=== PATIENT | male | born 1970 | race Caucasian/White ===

== ENCOUNTER 2017-12-16 15:00 | Inpatient (IN) | payer OTHER ==
[~2017-12-16] VITALS: Ht 182.9 cm; Wt 85.7 kg
[2017-12-16 15:04] VITALS: BP 138/104
[2017-12-16] MEDS ORDERED: WARF3TAB PO (15:12)
[2017-12-16] MEDS ORDERED: SPIR50TA PO (15:12)
[2017-12-16] MEDS ORDERED: METO25TA PO (15:12)
[2017-12-16] MEDS ORDERED: DIGO0.121 PO (15:12)
[2017-12-16 15:36] LABS: BASOPHILS # (AUTO) 0.3 K/uL (0.00-0.22); EOSINOPHILS # (AUTO) 0.1 K/uL (0-0.4); HEMATOCRIT 44.8 % (36-52); HEMOGLOBIN 14.3 g/dL (12.0-18.0); LYMPHOCYTES # (AUTO) 1.3 K/uL (2.0-11.5); MEAN CORPUSCULAR HEMOGLOBIN 30 pg (27-31); MEAN CORPUSCULAR HGB CONC 32 g/dL (33-37); MEAN CORPUSCULAR VOLUME 93 fL (80-94); MONOCYTES # (AUTO) 1.3 K/uL (0.8-1.0); PLATELET COUNT (AUTO) 241 K/uL (140-450); RED CELL DISTRIBUTION WIDTH 15.9 % (11.6-13.7)
--- NOTE | 2017-12-16 15:38 | NUR ---
ASSUMED PATIENT CARE, CONCUR WITH TRIAGE. NURSING ASSESSMENT COMPLETED. SEEN AND EVALUATED BY PAULINA HARRISON COMPLETED. STARTED ON CARDIAC MONITORING. SAFETY PRECAUTIONS ENFORCED.
[2017-12-16 15:46] LABS: ANION GAP 17.5 (8-16); CARBON DIOXIDE 22.9 mmol/L (21-32); POTASSIUM 4.4 mmol/L (3.5-5.1)
[2017-12-16 15:52] LABS: ALBUMIN 3.4 g/dL (3.4-5.0); TOTAL BILIRUBIN 1.6 mg/dL (0.0-1.0)
[2017-12-16 16:01] LABS: PROTHROMBIN TIME 49.2 secs (10.8-13.4)
--- NOTE | 2017-12-16 16:08 | NUR ---
DIAGNOSTIC TESTING INITIATED, AWAIT RESULTS AND DISPO. PATIENT UPDATED OF PLAN OF CARE.
[2017-12-16] MEDS ORDERED: FUROSEMIDE 40 MG/4 ML VIAL IVP ONE (16:10)
[2017-12-16] MEDS ORDERED: NITROGLYCERIN 2% 1 GM PKT TP ONE (16:10)
[2017-12-16] MEDS ORDERED: SODIUM CHLORIDE FLUSH 10 ML SYR IVF ONE (16:10)
[2017-12-16] MEDS ORDERED: DILTIAZEM 25 MG/5 ML VIAL IVP ONE (16:10)
--- NOTE | 2017-12-16 17:11 | NUR ---
DISPO AND MEDICAL DECISION MAKING, INPATIENT ADMISSION FOR FURTHER MANAGEMENT AND CARE. PATIENT UPDATED ACCORDINGLY.
[2017-12-16] MEDS ORDERED: ALBUTEROL 0.083% 2.5 MG/3 ML NEBU IH PRN (17:15)
[2017-12-16] MEDS ORDERED: ONDANSETRON 4 MG/2 ML VIAL IVP PRN (17:15)
[2017-12-16] MEDS ORDERED: MORPHINE SULFATE 4 MG/ML SYR IVP PRN (17:15)
[2017-12-16] MEDS ORDERED: ACETAMINOPHEN 325 MG TAB PO PRN (17:15)
[2017-12-16] MEDS ORDERED: DILTIAZEM 25 MG/5 ML VIAL IVP PRN (17:20)
[2017-12-16 17:50] VITALS: BP 117/74
--- NOTE | 2017-12-16 17:50 | NUR ---
PATIENT ADMITTED TO THE UNIT FROM ER. PATIENT AWAKE, ALERT AND ORIENTED. PATIENT ON 2L O2. SOB NOTED UPON EXERTION. O2 SAT 94% AT THE MOMENT. DENIES PAIN. SKIN IS INTACT. IV LINE NOTED TO THE RIGHT UPPER ARM SL. PATIENT HAS LEFT SIDED WEAKNESS. BLE NON PITTING EDEMA NOTED. PATIENT PLACED ON TELE MONITORING. BED LOWERED WITH CALL LIGHT WITHIN REACH. WILL CONTINUE TO MONITOR.
--- NOTE | 2017-12-16 18:00 | NUR ---
SPOKE WITH DR Marietta LOPEZ AND INFORMED HIM ABOUT PT'S BNP AND TROPONIN LEVEL. ORDERS ANOTHER TROPONIN DRAW FOR TOMORROW MORNING
--- NOTE | 2017-12-16 18:04 | NUR ---
TRANSFERRED TO TELE FLOOR VIA ANNA HOOKS PROTOCOL. PATIENT CARE REPORT GIVEN TO AIMEE MCCARTY. CONTINUITY OF CARE ENDORSED. PATIENT STABLE, NO DISTRESS.
--- NOTE | 2017-12-16 18:30 | NUR ---
Social Service Note: I was informed by patient's nurse Boni patient would like information about Advance Directives. I met with patient at bedside. I provided patient with education on Advance Directives. He stated he had a stroke before and would like his family to know his medical wishes. He reported he was at [facility] previously and now is living at home.
--- NOTE | 2017-12-16 19:30 | NUR ---
PATIENT REPORT GIVEN AT BEDSIDE. PATIENT ENDORSED IN STABLE CONDITION.
--- NOTE | 2017-12-16 19:35 | NUR ---
RECEIVED PT FROM DAY SHIFT NURSE. PT STABLE AT THIS TIME. VISITOR AT PT BED SIDE. PT EATING. NO S/S OF RESPIRATORY DISTRESS OR DISCOMFORT NOTED. 97% O2SAT ON ROOM AIR. RIGHT UA #18G, HEPLOCK. BED IN LOWEST POSITION. CALL LIGHT AND URINAL WITHIN EASY REACH. PLAN OF CARE WAS DISCUSSED WITH PT AND VERBALIZED UNDERSTANDING. WILL CONTINUE TO MONITOR.
[2017-12-16 19:45] VITALS: BP 127/82
--- NOTE | 2017-12-16 20:30 | NUR ---
URINE SPECIMEN COLLECTED FOR URINE DRUG SCREEN. SENT TO [facility]. WILL FOLLOW UP RESULT.
[2017-12-16] MEDS: IPRATROPIUM 0.02% 0.5 MG/2.5 ML NEBU INH SCH (20:54)
[2017-12-16] MEDS: ALBUTEROL 0.083% 2.5 MG/3 ML NEBU INH SCH (20:54)
[2017-12-16] MEDS: FUROSEMIDE 40 MG/4 ML VIAL IVP SCH (21:00)
[2017-12-16] MEDS: METOPROLOL 50 MG TAB PO SCH (21:00)
[2017-12-16 21:14] VITALS: BP 95/45
--- NOTE | 2017-12-16 21:15 | NUR ---
LASIX AND LOPRESSOR NOT GIVEN, BP LOW 94/45. WILL CONTINUE TO MONITOR.
[2017-12-16 23:21] LABS: BARBITURATE, URINE NEG. ng/ml (NEG <=200); BENZODIAZEPINE, URINE NEG. ng/mL (NEG <=200); CANNABINOID, URINE NEG. ng/mL (NEG <=50); COCAINE, URINE NEG. ng/mL (NEG <=300); OPIATE, URINE NEG. ng/mL (NEG <=2000); PHENCYCLIDINE SCREEN,URINE NEG. ng/mL (NEG <=25)
[2017-12-17] VITALS: BP 106/86
[2017-12-17 01:06] LABS: CREATINE KINASE MB 1.9 ng/mL (0-3.6)
[2017-12-17] MEDS: IPRATROPIUM 0.02% 0.5 MG/2.5 ML NEBU INH SCH ×4 (01:21→19:00)
--- NOTE | 2017-12-17 01:21 | NUR ---
ASLEEP PATIENT NOTED WITH PERIODS OF SLEEP APNEA SATURATION 86% ROOM AIR POST HHN THERAPY PLACED PATIENT ON SUPPLEMENTAL OXYGEN AT 2 LPM VIA TN SOLE MOLDER TO NOTIFY KAROL RN'S
[2017-12-17] MEDS: ALBUTEROL 0.083% 2.5 MG/3 ML NEBU INH SCH ×4 (01:22→19:00)
--- NOTE | 2017-12-17 02:06 | NUR ---
PT HAD EPISODE OF V TACH THAT RUNS 210SEC. WENT IN AND CHECKED PT . RT IN ROOM . JUST HAD BREATHING TREATMENT, AND O2 2L/WAS STARTED ON HIM. VITAL SIGNS WAS CHECKED. BP STILL ON LOW SIDE 96/73, HR-61, O2 SAT 98%. NO CHEST PAIN NOR DISCOMFORT NOTED. PAGED DR. LOPEZ AND MADE HIM AWARE OF THIS EPISODE. ALSO MADE AWARE OF THE SECOND TROPONIN 0.211 NO NEW ORDER MADE. WILL SEE PT TODAY. WILL CONTINUE TO MONITOR.
[2017-12-17 04:00] VITALS: BP 97/53
--- NOTE | 2017-12-17 04:00 | NUR ---
VITAL SIGNS TAKEN. STABLE. NO DISTRESS NOTED. O2 SAT ON ROOM AIR 98%.
--- NOTE | 2017-12-17 06:00 | NUR ---
PT IS ASLEEP. NO S/S OF ANY DISTRESS NOTED. ON O22L/NC.
[2017-12-17 07:11] LABS: BASOPHILS # (AUTO) 0.4 K/uL (0.00-0.22); BASOPHILS % (AUTO) 4.7 % (0.0-2.0); EOSINOPHILS # (AUTO) 0.2 K/uL (0-0.4); EOSINOPHILS % (AUTO) 2.2 % (0.0-4.0); HEMATOCRIT 37.8 % (36-52); HEMOGLOBIN 12.3 g/dL (12.0-18.0); LYMPHOCYTES # (AUTO) 1.3 K/uL (2.0-11.5); LYMPHOCYTES % (AUTO) 15.1 % (20.5-51.1); MEAN CORPUSCULAR HEMOGLOBIN 30 pg (27-31); MEAN CORPUSCULAR HGB CONC 33 g/dL (33-37); MEAN CORPUSCULAR VOLUME 93 fL (80-94); MONOCYTES # (AUTO) 0.9 K/uL (0.8-1.0); MONOCYTES % (AUTO) 10.9 % (1.7-9.3); NEUTROPHILS # (AUTO) 5.6 K/uL (1.8-7.7); NEUTROPHILS % (AUTO) 67.1 % (42.2-75.2); PLATELET COUNT (AUTO) 171 K/uL (140-450); RED BLOOD CELL COUNT(AUTO) 4.05 MIL/uL (4.20-6.10); RED CELL DISTRIBUTION WIDTH 16.2 % (11.6-13.7); WHITE BLOOD COUNT (AUTO) 8.4 K/uL (4.8-10.8)
--- NOTE | 2017-12-17 07:25 | NUR ---
ENDORSED PT IN STABLE CONDITION TO AM NURSE.
--- NOTE | 2017-12-17 07:26 | NUR ---
RECEIVED REPORT FROM ANGLEDOZER OPERATOR NURSE FOR CONTINUITY OF CARE AT BEDSIDE. PATIENT RESTING IN BED WITH EYES CLOSED EASILY WOKEN. NO ACUTE DISTRESS NOTED. PT WITH 22G IN LAC. SALINE LOCK. CALL LIGHT WITHIN REACH. WILL CONT TO MONITOR PT.
[2017-12-17 07:31] LABS: ALBUMIN 2.9 g/dL (3.4-5.0); ANION GAP 15.6 (8-16); CREATININE 1.9 mg/dL (0.7-1.3); PHOSPHORUS 3.2 mg/dL (2.5-4.9); POTASSIUM 3.6 mmol/L (3.5-5.1); TOTAL BILIRUBIN 1.3 mg/dL (0.0-1.0)
[2017-12-17 08:00] VITALS: BP 119/72
--- NOTE | 2017-12-17 08:00 | NUR ---
PATIENT ALERT AND ABLE TO MAKE NEEDS KNOWN. NO ACUTE DISTRESS NOTED. RESP EVEN AND UNLABORED. PT WITH RUE 22G SALINE LOCK. PATENT AND INTACT. PATIENT WITH LEFT SIDED WEAKNESS. AEROSOL SUPERVISOR IN PLACE AND FUNCTIONAL. CALL LIGHT WITHIN REACH. WILL CONT TO MONITOR PT.
[2017-12-17] MEDS: SPIRONOLACTONE 25 MG TAB PO SCH (08:58)
[2017-12-17] MEDS: FUROSEMIDE 40 MG/4 ML VIAL IVP SCH ×2 (08:58→21:00)
[2017-12-17] MEDS: DIGOXIN 0.125 MG TAB PO SCH (08:59)
[2017-12-17] MEDS: METOPROLOL 50 MG TAB PO SCH ×2 (08:59→21:21)
--- NOTE | 2017-12-17 09:00 | NUR ---
PATIENT ALERT AND ABLE TO VERBALIZE NEEDS. NO ACUTE DISTRESS NOTED. RESP EVEN AND UNLABORED. MORNING MEDICATION ADMINISTERED SCHEDULED PER MD ORDER. TOLERATED WELL. PT WITH RUE 22G SALINE LOCK. PATENT AND INTACT.URINAL AT BEDSIDE. CALL LIGHT WITHIN REACH. WILL CONT TO MONITOR.
--- NOTE | 2017-12-17 11:07 | NUR ---
LAB REPORTED INR OF 3.7. INR TRENDING DOWN. NO ACUTE DISTRESS NOTED. PATIENT WITHOUT BLEEDING OR BRUISING CALL LIGHT WITHIN REACH. WILL CONT TO MONITOR..
[2017-12-17 12:00] VITALS: BP 102/71
--- NOTE | 2017-12-17 13:30 | NUR ---
PATIENT WITH APPROX 2 SECONDS OF V TACH. CHECKED ON PATIENT . PATIENT ALERT AND ABLE TO MAKE NEEDS KNOWN. NO C/O PAIN OR DISCOMFORT. ASYMPTOMATIC. CALL LIGHT WITHIN REACH. WILL CONT TO MONITOR PT. INFORMED DR LOPEZ WITH NO NEW ORDERS.
--- NOTE | 2017-12-17 15:00 | NUR ---
DR CRUZ IN TO SEE PATIENT WITH NEW ORDERS. PATIENT ALERT AND ABLE TO VERBALIZE NEEDS. NO ACUTE DISTRESS NOTED. WILL CONT TO MONITOR.
--- NOTE | 2017-12-17 15:30 | NUR ---
PT ALERT AND ABLE TO VERBALIZE NEEDS. NO ACUTE DISTRESS. NO SOB. RESP EVEN AND UNLABORED. CALL LIGHT WITHIN EACH. WILL CONT TO MONITOR PT.
[2017-12-17 16:00] VITALS: BP 113/82
[2017-12-17 17:58] LABS: CREATINE KINASE MB 2.4 ng/mL (0-3.6)
--- NOTE | 2017-12-17 18:35 | NUR ---
CALLED DR LOPEZ REGARDING CRITICAL LAB REPORT OF TROP 0.233. DR LOPEZ VERBALIZED NO NEW ORDERS. PATIENT ASYMPTOMATIC. RESTING IN BED. NO C/O PAIN OR DISCOMFORT. NO C/O SOB. PT ON RA . O2 SAT 93%. CALL LIGHT WITHIN REACH. WILL CONT TO MONITOR.
--- NOTE | 2017-12-17 19:24 | NUR ---
ENDORSED REPORT TO COUTIERIER NURSE AT BEDSIDE FOR CONTINUITY OF CARE.
--- NOTE | 2017-12-17 19:25 | NUR ---
RECEIVED PT FROM ELIA RN PT IS AAOX4 ON LABORES BREATHING AND SINUS TACHY 106 HL ON RT UP AND PT HAS A LEFT SIDE WEAKNESS RELATIVES AT BED SIDE IN;ITIAL ASSESSMENT DONE
--- NOTE | 2017-12-17 19:45 | NUR ---
PT REFUSED TX AT THIS TIME, CURRENTLY HAD GUESTS AND WANTED TO SPEND TIME, NO RESP DISTRESS OR SOB NOTED AT THIS TIME, O2 SAT 96% ON RA, WILL CHECK BACK AT A LATER TIME AND CONTINUE WITH NEXT SCHEDULED TX
[2017-12-17 20:00] VITALS: BP 106/83
--- NOTE | 2017-12-17 21:00 | NUR ---
PT REFUSED LASIX HE COMPLAINT TO UNABLE TO SLEEP BECAUSE LASIX DIURETIC.
--- NOTE | 2017-12-17 22:00 | NUR ---
PT IS ASSISTED TO THE RESTROOM NOT DISTRES NOTED ON TELEMETRY AFIB
[2017-12-18] VITALS: BP 109/82
[2017-12-18] MEDS: IPRATROPIUM 0.02% 0.5 MG/2.5 ML NEBU INH SCH ×3 (00:07→12:55)
[2017-12-18] MEDS: ALBUTEROL 0.083% 2.5 MG/3 ML NEBU INH SCH ×3 (00:07→12:55)
--- NOTE | 2017-12-18 01:50 | NUR ---
PT SLEEPING HR HAS BEEN TACHY AFIB AND LABORED BREATHING BU 02 SAT 98
--- NOTE | 2017-12-18 03:00 | NUR ---
PT SLEEPING NOT DISTRESS NOTED AT THIS TIME AFIB 125
--- NOTE | 2017-12-18 04:35 | NUR ---
PATIENT RECEIVED FROM LUL LUGO PATIENT IS CURRENTLY RESTING IN BED WITH LT SIDED WEAKNESS HAS OXYGEN AT 2L VIA NASAL CANNULA. I CHECKED HIS VITAL SIGNS. NO SOB NOTED NO COMPLAINS OF PAIN OR CHEST PAIN NOTED. PATIENT IS ABLE TO USE THE URINAL. CALL LIGHT WITHIN REACH WILL CONTINUE TO MONITOR.
[2017-12-18 04:40] VITALS: BP 104/68
--- NOTE | 2017-12-18 04:41 | NUR ---
Alexandru AMAYA HAS ALREADY BEEN INFORMED THAT PATIENT HAS BEEN HAVING EPISODES OF VTACH.PATIENT HAS BEEN SEEN ALREADY BY Alexandru AMAYA REGULATOR TESTER.
--- NOTE | 2017-12-18 04:41 | NUR ---
PATIENT HAD A SHORT PERIOD OF VTACH PATIENT VITALS HAVE BEEN CHECKED AND THEY ARE CURRENTLY WNL AT THIS TIME PATIENT DENIES ANY CHEST PAIN PATIENT REMAINS ASYMPTOMATIC AT THIS TIME AND CONTINUES TO BE MONITORED.
[2017-12-18 06:41] LABS: BASOPHILS # (AUTO) 0.2 K/uL (0.00-0.22); BASOPHILS % (AUTO) 1.9 % (0.0-2.0); EOSINOPHILS # (AUTO) 0.1 K/uL (0-0.4); EOSINOPHILS % (AUTO) 1.1 % (0.0-4.0); HEMATOCRIT 38.6 % (36-52); HEMOGLOBIN 12.6 g/dL (12.0-18.0); LYMPHOCYTES # (AUTO) 0.8 K/uL (2.0-11.5); LYMPHOCYTES % (AUTO) 7.9 % (20.5-51.1); MEAN CORPUSCULAR HEMOGLOBIN 30 pg (27-31); MEAN CORPUSCULAR HGB CONC 33 g/dL (33-37); MEAN CORPUSCULAR VOLUME 92 fL (80-94); MONOCYTES # (AUTO) 0.8 K/uL (0.8-1.0); MONOCYTES % (AUTO) 8.2 % (1.7-9.3); NEUTROPHILS # (AUTO) 7.6 K/uL (1.8-7.7); NEUTROPHILS % (AUTO) 80.9 % (42.2-75.2); PLATELET COUNT (AUTO) 179 K/uL (140-450); RED CELL DISTRIBUTION WIDTH 16.1 % (11.6-13.7)
--- NOTE | 2017-12-18 06:55 | NUR ---
PATIENT IS CURRENTLY AWAKE SITTING AT THE EDGE OF THE BED. PATIENT DENIES PAIN AND DISCOMFORT.
--- NOTE | 2017-12-18 07:10 | NUR ---
RECEIVED REPORT FROM JAVI MCGILL. PT IS AAOX4, AMBULATORY, IV IS ON THE RIGHT AC, PATENT, INTACT, FLUSHING WELL, NO S/S OF RESPIRATORY DISTRESS OR DISCOMFORT NOTED, DISCUSSED PLAN OF CARE WITH PT, PT VERBALIZED UNDERSTANDING, SAFETY/FALL PRECAUTIONS ARE IN PLACE, CALL LIGHT IS WITHIN REACH, WILL CONTINUE TO MONITOR.
[2017-12-18 07:18] LABS: ALBUMIN 2.9 g/dL (3.4-5.0); ANION GAP 14.7 (8-16); CREATININE 1.8 mg/dL (0.7-1.3); POTASSIUM 3.7 mmol/L (3.5-5.1); TOTAL BILIRUBIN 1.9 mg/dL (0.0-1.0)
[2017-12-18 07:56] LABS: WHITE BLOOD COUNT (AUTO) 9.5 K/uL (4.8-10.8)
[2017-12-18 08:00] VITALS: BP 107/88
[2017-12-18] MEDS: SPIRONOLACTONE 25 MG TAB PO SCH (08:08)
[2017-12-18] MEDS: FUROSEMIDE 40 MG/4 ML VIAL IVP SCH (08:08)
[2017-12-18] MEDS: METOPROLOL 50 MG TAB PO SCH (08:09)
[2017-12-18] MEDS: DIGOXIN 0.125 MG TAB PO SCH (08:24)
--- NOTE | 2017-12-18 08:24 | NUR ---
DUE MEDICATION GIVEN, PT TOLERATED WELL, NO S/S OF RESPIRATORY DISTRESS OR DISCOMFORT NOTED. CALL LIGHT WITHIN REACH.
--- NOTE | 2017-12-18 08:32 | NUR ---
PATIENT HAS BEEN SCREENED AND CATEGORIZED MODERATE NUTRITION RISK. PATIENT WILL BE SEEN WITHIN 3-5 DAYS OF ADMISSION. 12/18/17-12/20/[address]
--- NOTE | 2017-12-18 10:30 | NUR ---
PT SLEEPING IN BED AT THIS TIME, CALL LIGHT IS WITHIN REACH.
[2017-12-18 12:00] VITALS: BP 116/86
--- NOTE | 2017-12-18 12:00 | NUR ---
PT RESTING IN BED, WATCHING TV, CALL LIGHT IS WITHIN REACH.
--- NOTE | 2017-12-18 13:45 | NUR ---
CM NOTE INITIAL REVIEW FAXED TO [facility] / FAX# [phone], ATTN: LEIGHA #[phone]
[2017-12-18] MEDS ORDERED: WARF3TAB PO (14:39)
--- NOTE | 2017-12-18 14:40 | NUR ---
DR. CRUZ IN PATIENT'S ROOM, TALKING TO PATIENT AT THIS TIME.
--- NOTE | 2017-12-18 15:49 | NUR ---
DISCHARGE INSTRUCTIONS GIVEN, IV REMOVED, CATHETER TIP INTACT, ID WRIST BAND REMOVED. PT STABLE UPON DISCHARGE, ACCOMPANIED BY FRIEND.
--- NOTE | 2017-12-20 16:14 | NUR ---
DISCHARGE SUMMARY AND DATE OF DISCHARGE WRITTEN ON THE FAX SHEET FAXED TO [facility] [phone]
== END 2017-12-18 15:50 | disposition home or self-care (01) | DRG 190 ==
LOC: MED 15:00 → MTU 17:18
PROVIDERS: ADMIT Hospitalist; ATTEND Hospitalist
DX: I21.4 Non-ST elevation (NSTEMI) myocardial infarction (principal); N17.0 Acute kidney failure with tubular necrosis; I47.2 Ventricular tachycardia; I50.43 Acute on chronic combined systolic (congestive) and diastolic (congestive) heart failure; N18.3 Chronic kidney disease, stage 3 (moderate); I13.0 Hypertensive heart and chronic kidney disease with heart failure and stage 1 through stage 4 chronic kidney disease, or unspecified chronic kidney disease; I42.0 Dilated cardiomyopathy; I25.10 Atherosclerotic heart disease of native coronary artery without angina pectoris; I48.91 Unspecified atrial fibrillation; E78.5 Hyperlipidemia, unspecified; F15.11 Other stimulant abuse, in remission; Z95.810 Presence of automatic (implantable) cardiac defibrillator; I69.954 Hemiplegia and hemiparesis following unspecified cerebrovascular disease affecting left non-dominant side; Z87.891 Personal history of nicotine dependence
CPT/HCPCS: 36415; 71045; 71250; 80053; 80162; 80305; 82550; 82553; 83735; 83880; 84100; 84484; 85025; 85610; 85730; 87081; 87804; 93005; 94640; 96374; 96375; 97110; 97140; 99285; J1940; J3490; J7613; J7644; Q0092

== ENCOUNTER 2017-12-29 21:48 | Inpatient (IN) | payer OTHER ==
[~2017-12-29] VITALS: Ht 175.3 cm; Wt 81.2 kg
[~2017-12-29 21:48] MED LIST: DIGO0.121 PO; METO25TA PO; SPIR50TA PO; WARF3TAB PO
--- NOTE | 2017-12-29 21:51 | NUR ---
PT TAKEN TO BED 10
[2017-12-29 21:52] VITALS: BP 92/70
--- NOTE | 2017-12-29 21:52 | NUR ---
47/M BIB W C/O SOB X 1 MONTH. DIMINISHED LUNG SOUNDS BILATERALLY WITH RHONCHI TO LT MIDLOBE, SATS 85% ON RA, PT PLACED ON 2LPM NC, HOB ELEVATED, INCREASED WOB NOTED, PT WITH ACCESSORY MUSCLE USE AND SPEAKS COHERENTLY WITH FREQUENT PAUSES. STATES " HE HAS BEEN SPITTING UP CLEAR FLUID" PMH: HTN, CHF, STAGE 3 KIDNEY DISEASE , ABLATION 12/28/17, CVA WITH LEFT SIDE DEFICIT 10/2016, VA 10/2016. Addendum: 12/30/17 at 0053 by LILIANE HX: PANCREATITIS
[2017-12-29 22:08] VITALS: BP 92/70
[2017-12-29] MEDS ORDERED: NITR0.4S14 SL (22:08)
[2017-12-29] MEDS ORDERED: ALPR0.5O4 PO (22:08)
[2017-12-29] MEDS ORDERED: ACET-8386 PO (22:08)
--- NOTE | 2017-12-29 22:11 | NUR ---
Roger kunz in [facility] - 12/29/17 at 2218 [address] RYLAND RT AT BEDSIDE
--- NOTE | 2017-12-29 22:12 | NUR ---
PT STATES HE PRODUCES VERY LITTLE URINE, BUT WAS PROVIDED URINAL
--- NOTE | 2017-12-29 22:14 | NUR ---
PROFILE MILL OPERATOR TAPE CONTROL AT BEDSIDE
--- NOTE | 2017-12-29 22:16 | NUR ---
Note ze in EDM - 12/29/17 at 2218 by MEDCRICKET Pt in bed positioned for comfort. DEPARTMENT OF MATHEMATICS CHAIR at bedside. VSS. Pt cooperative and calm at this time. Continue to monitor.
--- NOTE | 2017-12-29 22:16 | NUR ---
RESPIRATORY AT BEDSIDE FOR ABG
[2017-12-29] MEDS ORDERED: NACL 0.9% 500 ML IV ONE (22:30)
[2017-12-29 23:09] LABS: ALBUMIN 3.5 g/dL (3.4-5.0); ANION GAP 27.4 (8-16); CARBON DIOXIDE 14.8 mmol/L (21-32); CREATININE 3.4 mg/dL (0.7-1.3); TOTAL BILIRUBIN 5.1 mg/dL (0.0-1.0)
[2017-12-29 23:17] LABS: POTASSIUM 7.2 mmol/L (3.5-5.1)
[2017-12-29 23:37] LABS: HEMATOCRIT 50.5 % (36-52); HEMOGLOBIN 15.5 g/dL (12.0-18.0); MEAN CORPUSCULAR HEMOGLOBIN 29 pg (27-31); MEAN CORPUSCULAR HGB CONC 31 g/dL (33-37); MEAN CORPUSCULAR VOLUME 94 fL (80-94); PLATELET COUNT (AUTO) 137 K/uL (140-450); WHITE BLOOD COUNT (AUTO) 10.1 K/uL (4.8-10.8)
[2017-12-29 23:39] LABS: LYMPHOCYTES % (MANUAL) 8 % (20-46); MONOCYTES % (MANUAL) 7 % (5-12)
--- NOTE | 2017-12-29 23:43 | NUR ---
RT AT BEDSIDE FOR TREATMENT
[2017-12-30] VITALS (16 sets, daily range): BP systolic 96–130; BP diastolic 62–84
[2017-12-30] MEDS ORDERED: SODIUM POLYSTYRENE 15 GM/60 ML UDBTL PO SCH
[2017-12-30] MEDS ORDERED: ALBUTEROL 0.083% 2.5 MG/3 ML NEBU INH SCH
[2017-12-30] MEDS ORDERED: CALCIUM GLUCONATE 10% 1000 MG/10 ML VIAL IVP SCH
--- NOTE | 2017-12-30 00:10 | NUR ---
CALLED HOUSE SUP FOR FOOD
--- NOTE | 2017-12-30 00:10 | NUR ---
PT UNABLE TO VOID AT THIS TIME, JAILENE HARRISON MADE AWARE
--- NOTE | 2017-12-30 00:20 | NUR ---
PT REFUSING DINNER, ER MADE AWARE
--- NOTE | 2017-12-30 00:20 | NUR ---
HOUSE SUP GAVE PT DINNER.
[2017-12-30] MEDS ORDERED: FUROSEMIDE 20 MG TAB PO SCH (00:40)
[2017-12-30] MEDS ORDERED: LORazepam 2 MG/ML VIAL IVP PRN (00:40)
[2017-12-30] MEDS ORDERED: ONDANSETRON 4 MG/2 ML VIAL IVP PRN (00:40)
[2017-12-30] MEDS ORDERED: MORPHINE SULFATE 4 MG/ML SYR IVP PRN ×2 (00:40)
--- NOTE | 2017-12-30 00:47 | NUR ---
PT REFUSING KAYEXELATE, PT INSTRUCTED REGARDING INDICATION OF MEDICINE. ER MADE AWARE
--- NOTE | 2017-12-30 00:52 | NUR ---
CALLED TELE HOST/HOSTESS RESTAURANT FOR TELE BED. RN WILL CALL BACK WITH TELE ROOM#
--- NOTE | 2017-12-30 01:05 | NUR ---
Patient will be admitted to care of [facility]. Admited to TELE . Will go to room 121B. Belongings list completed. BEDSIDE Report to RICHIE MCCARTY. IV SL AND PATENT
--- NOTE | 2017-12-30 01:10 | NUR ---
RECEIVED PT FROM ER ELODIA RN, NOT IN STABLE CONDITION. PT AAOX4, ON ROOM AIR. NO ACUTE SYMPTOMS OF DISTRESS. SKIN IS COOL AND CYANOTIC. IV TO R WRIST 18G, NOT PATENT. SKIN IS INTACT. REDNESS NOTED TO SACRAL AREA. CRACKLES HEARD IN THE LUNGS BILATERALLY. PTS POTASSIUM 7.2 ELODIA REPORTED PT REFUSED KAYEXALATE IN ER. INITIAL ASSESSMENT COMPLETED, PLAN OF CARE DISCUSSED WITH PT, CALL LIGHT WITHIN REACH, BOARD UPDATED, WILL CONTINUE TO MONITOR.
--- NOTE | 2017-12-30 01:15 | NUR ---
PT CAME FROM ER WITH LASIX 40 MG DUE, NOT GIVEN IN ER, MEDICATION NOT AVAILABLE IN [facility], MADE MACHINE STRAW HAT PRESSER AWARE TOP BRING
--- NOTE | 2017-12-30 01:20 | NUR ---
BLADDER SCAN DONE, SHOWS 17ML OF URINE, GARCIA CATHETER PLACED, PT TOLERATED WELL
[2017-12-30 01:30] LABS: PROTHROMBIN TIME 31.5 secs (10.8-13.4)
[2017-12-30 01:45] LABS: ALBUMIN 2.9 g/dL (3.4-5.0); BILIRUBIN,DIRECT 2.2 mg/dL (0.0-0.3)
--- NOTE | 2017-12-30 01:45 | NUR ---
PAGED DR. DESIR FOR CRITICAL LAB OF LACTIC ACID 12.4, AND TO MAKE AWARE OF ALL OTHER LABS
--- NOTE | 2017-12-30 01:50 | NUR ---
DR. DESIR PAGED BACK, MADE AWARE OF LABS, DR. DESIR STATED, "PT NEEDS TO TAKE KAYEXALATE, HE NEEDS TO BE CONVINCED BECAUSE HE COULD ." DR. DESIR ORDERED BLADDER SCAN, GARCIA CATHETER, AND CONSULT FOR DR. LOPEZ
--- NOTE | 2017-12-30 01:50 | NUR ---
PT STILL REFUSING TO TAKE KAYEXALATE AT THIS TIME.
--- NOTE | 2017-12-30 02:00 | NUR ---
NEPHROLOGY CONSULT DR. CONCHITA REILLY AND STATED THAT HE DOES NOT HAVE ACCESS AT [facility] AND HE THINKS IT IS A MISTAKE HE WAS CONSULTED AND HE WILL HAVE TO DECLINE AND TO MAKE DR. DESIR AWARE
--- NOTE | 2017-12-30 02:05 | NUR ---
DR. DESIR PAGED TO MAKE AWARE OF DR. ARANGO DECLINING CONSULT. HE SAID TO PAGE DR. LANCASTER.
--- NOTE | 2017-12-30 02:10 | NUR ---
DR. LIU BUSINESS SERVICES SALES REPRESENTATIVE FOR DR. LANCASTER, DR. LIU MADE AWARE OF REQUESTING CONSULT. HE STATED HE WILL TAKE PT. DR. LIU STATED, "THIS PT CAME TO THE FLOOR WITH THESE LABS? THIS PT NEEDS TO BE IN ICU NOW." DR. LIU ORDERED FOR PT TO BE IN ICU AND STARTED ON D5 WITH 3 AMPS OF BI-CARB.
--- NOTE | 2017-12-30 02:15 | NUR ---
PT HAVING US DONE AT THIS TIME
--- NOTE | 2017-12-30 02:15 | NUR ---
HOUR REGULATOR TESTER ANDRES BROUGHT LASIX OVER
--- NOTE | 2017-12-30 02:30 | NUR ---
ASKED SALES OPERATIONS MANAGER TO OVERRIDE NICOLE, ANDRES STATED HE WILL BRING
--- NOTE | 2017-12-30 02:30 | NUR ---
DR. DESIR SPOKE WITH CHARGE NURSE MAK RN ON PHONE AND STATED PT NEEDS TO BE TRANSFERRED TO ICU NOW AND SHOULD NOT HAVE BEEN SENT TO THE FLOOR.
[2017-12-30] MEDS ORDERED: FUROSEMIDE 40 MG TAB ONE (02:37)
--- NOTE | 2017-12-30 02:45 | NUR ---
DR. DESIR ORDERED REPEAT ABG STAT BEFORE PT IS TRANSFERRED TO ICU.
[2017-12-30] MEDS: SODIUM POLYSTYRENE 15 GM/60 ML UDBTL PO SCH ×2 (02:50→11:22)
[2017-12-30] MEDS ORDERED: VANCOMYCIN PER PHARMACY MC PRN (02:50)
--- NOTE | 2017-12-30 02:50 | NUR ---
CONVINCED PT TO TAKE KAYEXALATE AND EXPLAINED THE IMPORTANCE AND NEED FOR THE MEDICATION WELL THE DANGER OF NOT TAKING IT. PT AGREED AT THIS POINT TO TAKE IT
[2017-12-30] MEDS ORDERED: SODIUM BICARBONATE 8.4% PFS 50 MEQ/50 ML SYR IVP ONE (02:54)
[2017-12-30] MEDS ORDERED: SODIUM BICARBONATE 8.4% PFS 50 MEQ/50 ML SYR IVP SCH ×2 (03:00)
--- NOTE | 2017-12-30 03:00 | NUR ---
DR. DESIR MADE AWARE OF GS
[2017-12-30] MEDS ORDERED: LEVOTHYROXINE 200 MCG VIAL IV STA (03:08)
[2017-12-30] MEDS: DEXTROSE 5% 1,000 ML IV SCH ×2 (03:09→09:20)
--- NOTE | 2017-12-30 03:40 | NUR ---
SEVERAL ATTEMPTS MADE TO START NEW IV BY CHARGE NURSE MAK RN, ALPESH RN AND USED CAR MAKE READY MECHANIC, AND RICHIE MCCARTY. ATTEMPTS UNSUCCESSFUL. NEW IV TO BE STARTED IN ICU
--- NOTE | 2017-12-30 03:45 | NUR ---
PT TRANSFERRED TO ICU IN STABLE CONDITION, REPORT GIVEN TO ICU NURSE FOR CONTINUITY OF CARE
[2017-12-30] MEDS ORDERED: VANCOMYCIN 1,000 MG in DEXTROSE 5% 250 ML IV SCH (04:00)
--- NOTE | 2017-12-30 04:00 | NUR ---
PT TRANSFERRED TO ICU BED 2 FROM TELE, REPORT RECEIVED FROM TELE NURSE LUAREN. MCCARTY. PT IS AWAKE AND ALERT &ORIENTED X4 VERBALLY RESPONSIVE. BILATERAL LUNGS SOUND DIMINISHED AND CLEAR. LEFT UPPER CHEST PACEMAKER PLACEMENT NOTED. A FIB WITH 100% PACED. PULSE RATE 86, BP 107/80, R 20, 02SAT 97%. PERIPHERAL IV LINE TO RIGHT WRIST 22G WITH D5 MIXED WITH SODIUM BICARB 150MEQ 150ML/HR. ACTIVE BOWEL SOUND FROM ALL 4 QUADS. SKIN IS CLEAN AND INTACT. UPPER LEFT SIDE EXTREMITIES WEAKNESS AND NON PITTING EDEMA NOTE. BED IN LOW POSITION, HOB ELEVATED, CALL LIGHT WITHIN REACH. WILL CONTINUE TO MONITOR.
[2017-12-30 04:30] LABS: BASOPHILS # (AUTO) 0.2 K/uL (0.00-0.22); BASOPHILS % (AUTO) 1.2 % (0.0-2.0); EOSINOPHILS % (AUTO) 0.2 % (0.0-4.0); HEMATOCRIT 44.3 % (36-52); LYMPHOCYTES # (AUTO) 0.6 K/uL (2.0-11.5); LYMPHOCYTES % (AUTO) 3.8 % (20.5-51.1); MEAN CORPUSCULAR HEMOGLOBIN 29 pg (27-31); MEAN CORPUSCULAR HGB CONC 32 g/dL (33-37); MEAN CORPUSCULAR VOLUME 93 fL (80-94); MONOCYTES % (AUTO) 6.7 % (1.7-9.3); NEUTROPHILS # (AUTO) 13.7 K/uL (1.8-7.7); NEUTROPHILS % (AUTO) 88.1 % (42.2-75.2); PLATELET COUNT (AUTO) 150 K/uL (140-450); RED BLOOD CELL COUNT(AUTO) 4.78 MIL/uL (4.20-6.10); RED CELL DISTRIBUTION WIDTH 16.5 % (11.6-13.7); WHITE BLOOD COUNT (AUTO) 15.5 K/uL (4.8-10.8)
[2017-12-30] MEDS ORDERED: NACL 0.9% 500 ML IV SCH (04:50)
--- NOTE | 2017-12-30 05:00 | NUR ---
BM NOTED;LARGE AMT OF SOFT STOOL NOTED.PT WASHED. DR LIU, NEPHRO, IN THE UNIT. MADE AWARE OF CRITICAL LAB RESULTS.NO NEW ORDERS
[2017-12-30 05:18] LABS: ALBUMIN 3.1 g/dL (3.4-5.0); ANION GAP 22.2 (8-16); CARBON DIOXIDE 18.2 mmol/L (21-32); CREATININE 3.5 mg/dL (0.7-1.3)
[2017-12-30 05:21] LABS: POTASSIUM 6.4 mmol/L (3.5-5.1)
[2017-12-30] MEDS ORDERED: VANCOMYCIN 1,000 MG VIAL ONE (05:22)
[2017-12-30] MEDS ORDERED: PIPERACILLIN/TAZOBACTAM 2.25 GM VIAL IV ONE (05:23)
[2017-12-30 05:29] LABS: PROTHROMBIN TIME 40.1 secs (10.8-13.4)
--- NOTE | 2017-12-30 05:30 | NUR ---
ADMINISTERED IV ABX, TOLERATED WELL. NO ACUTE DISTRESS NOTED. WILL CONTINUE TO MONITOR.
[2017-12-30] MEDS: PIPER/TAZO 2.25GM/D5W PREMIX 50 ML IV SCH ×3 (05:52→20:29)
[2017-12-30] MEDS ORDERED: DEXTROSE 50% 50 ML SYR IVP SCH ×2 (06:00)
[2017-12-30] MEDS ORDERED: CALCIUM GLUCONATE 10% 1,000 MG in NACL 0.9% 50 ML IV SCH (06:00)
[2017-12-30] MEDS ORDERED: INSULIN REGULAR, HUMAN 100 UNIT/ML VIAL IVP SCH ×2 (06:00)
--- NOTE | 2017-12-30 06:00 | NUR ---
CHEM RESULT READ BACK TO DR LIU; NEW ORDERS RECEIVED.CARRIED OUT.
[2017-12-30] MEDS ORDERED: CALCIUM GLUCONATE 10% 1000 MG/10 ML VIAL ONE (06:12)
--- NOTE | 2017-12-30 06:30 | NUR ---
ADMINISTERED MEDICATION, TOLERATED WELL. NO ACUTE DISTRESS NOTED. PT DENIES ANY PAIN. VSS NOTED. WILL CONTINUE TO MONITOR.
--- NOTE | 2017-12-30 07:20 | NUR ---
REPORT GIVEN TO RATANA. MCCARTY. VSS. NO ACUTE DISTRESS NOTED.
--- NOTE | 2017-12-30 07:30 | NUR ---
REPORT RECEIVED FROM NIGHT NURSE, JAYLAN. PT IS AWAKE, ALERT AND ORIENTED X 4. ABLE TO MAKE NEEDS KNOWN. A. FIB ON MONITOR W/ 100% PACED, PACEMAKER TO LEFT UPPER CHEST. ON ROOM AIR W/ O2 SAT 97%. BILATERAL LUNGS SOUND CLEAR AND DIMINISHED. BREATHING EVEN AND UNLABORED. PERIPHERAL IV G 22 TO RIGHT WRIST ASYMPTOMATIC, PATENT AND INTACT. ABDOMEN SOFT, NONTENDER W/ ACTIVE BOWEL SOUNDS X 4 QUADRANTS. SKIN IS INTACT, DRY AND WARM TO TOUCH. PT HAS HX OF CVA W/ LEFT SIDED WEAKNESS TO UPPER EXTREMITY. HOB 30 DEGREES. BED IN LOWEST POSITION AND CALL LIGHT WITHIN REACH. WILL CONTINUE TO MONITOR.
--- NOTE | 2017-12-30 07:50 | NUR ---
PT HAD A LARGE AMOUNT OF BOWEL MOVEMENT. CLEANED AND REPOSITIONED PT. C/O NAUSEA AFTER REPOSITIONING. NO VOMITING. VITAL SIGNS STABLE. WILL CONTINUE TO MONITOR.
--- NOTE | 2017-12-30 07:53 | NUR ---
PATIENT HAS BEEN SCREENED AND CATEGORIZED MODERATE NUTRITION RISK. PATIENT WILL BE SEEN WITHIN 3-5 DAYS OF ADMISSION. 01/02/18 - 01/04/18 SANDRA KRUEGER MBA, RD
--- NOTE | 2017-12-30 08:35 | NUR ---
PT SEEN AND EXAMINED BY DR. NEELY AT BEDSIDE. VERIFIED LEVOTHYROXINE ORDER. PER DR. NEELY, HOLD LEVOTHYROXINE FOR NOW UNTIL PT GETS BETTER.
--- NOTE | 2017-12-30 08:45 | NUR ---
DR. JENSEN IN FOR ALEX CATH INSERTION. TIME OUT CALLED. WILL FOLLOW UP ON ORDERS.
--- NOTE | 2017-12-30 08:55 | NUR ---
ALEX CATH INSERTION DONE BY DR. JENSEN. PT TOLERATED WELL. PT RESTING AT THIS TIME. VITAL SIGNS STABLE.
[2017-12-30 09:21] LABS: CREATININE 3.2 mg/dL (0.7-1.3)
[2017-12-30 09:26] LABS: ANION GAP 23.4 (8-16); CARBON DIOXIDE 15.3 mmol/L (21-32); POTASSIUM 4.7 mmol/L (3.5-5.1)
--- NOTE | 2017-12-30 10:10 | NUR ---
ECHO DONE NOTIFIED ABOUT EF
--- NOTE | 2017-12-30 10:10 | NUR ---
ECHO COMPLETED. PT TOLERATED WELL. RESTING COMFORTABLY AT THIS TIME.
--- NOTE | 2017-12-30 10:24 | NUR ---
PT'S PATIENT SERVICE REP, JOSIAH AT BEDSIDE. UPDATES GIVEN ON PT'S CONDITION.
[2017-12-30] MEDS ORDERED: ALBUMIN HUMAN 25% 100 ML IV SCH (11:17)
--- NOTE | 2017-12-30 11:23 | NUR ---
PT IS GETTING HEMODIALYSIS. VERBALLY RESPONSIVE. NO ACUTE DISTRESS NOTED. VITAL SIGNS STABLE. POTASSIUM 4.7. KAYEXALATE HELD. WILL CONTINUE TO MONITOR.
--- NOTE | 2017-12-30 11:23 | NUR ---
D5 MIXED WITH SODIUM BICARB 150MEQ HELD PER DR. LIU.
--- NOTE | 2017-12-30 12:00 | NUR ---
DR. JESSICA Horvath. IN TO SEE AND EXAMINE PT. WILL FOLLOW UP ON ORDERS.
[2017-12-30 13:30] LABS: CREATINE KINASE MB 11.8 ng/mL (0-3.6)
--- NOTE | 2017-12-30 13:54 | NUR ---
HEMODIALYSIS COMPLETED. PT IN STABLE CONDITION. VERBALLY RESPONSIVE. VSS. SAFETY PRECAUTIONS IN PLACE. WILL CONTINUE TO MONITOR.
--- NOTE | 2017-12-30 15:47 | NUR ---
PT IS SLEEPING COMFORTABLY AT THIS TIME. NO DISTRESS OR DISCOMFORT NOTED. VSS. SAFETY MEASURES ENSURED.
--- NOTE | 2017-12-30 15:48 | NUR ---
ASSOCIATE SALES MANAGER SHOWS V-TACH FOR 5 SECONDS. PT IS ASYMPTOMATIC. DR. JESSICA Mcmanus MADE AWARE. ORDER RECEIVED.
[2017-12-30 15:49] LABS: APPEARANCE,URINE CLEAR (CLEAR); BILIRUBIN,URINE 1+ (NEGATIVE); BLOOD, URINE 3+ (NEGATIVE); COLOR,URINE YELLOW (YELLOW); LEUKOCYTE ESTERASE ,URINE NEGATIVE (NEGATIVE); NITRITE, URINE NEGATIVE (NEGATIVE); PH,URINE 5.5 (5.0-9.0); UGLUCOSE NEGATIVE (NEGATIVE)
[2017-12-30 15:52] LABS: RBC,URINE 20-50 /HPF (0-5)
[2017-12-30 15:55] LABS: BARBITURATE, URINE NEG. ng/ml (NEG <=200); BENZODIAZEPINE, URINE POS. ng/mL (NEG <=200); CANNABINOID, URINE NEG. ng/mL (NEG <=50); COCAINE, URINE NEG. ng/mL (NEG <=300); OPIATE, URINE NEG. ng/mL (NEG <=2000); PHENCYCLIDINE SCREEN,URINE NEG. ng/mL (NEG <=25)
--- NOTE | 2017-12-30 16:30 | NUR ---
DR. LOPEZ ORDERED 3.125 MG OF COREG X 1 FOR NOW DUE TO EPISODE OF V-TACH. MEDICATION ADMINISTERED ORDERED. PT TOLERATED WELL.
[2017-12-30] MEDS ORDERED: CARVEDILOL 6.25 MG TAB ONE (16:44)
--- NOTE | 2017-12-30 18:05 | NUR ---
PT SEEN AND EXAMINED BY DR. ESQUEDA. WILL FOLLOW UP ON ORDERS.
--- NOTE | 2017-12-30 19:21 | NUR ---
REPORT GIVEN TO NIGHT NURSE FOR CONTINUITY OF CARE. PT IS IN STABLE CONDITION.
--- NOTE | 2017-12-30 19:30 | NUR ---
RECEIVED REPORT FROM AM NURSE. LABS/ORDERS/POC RECEIVED; PT ASLEEP; AROUSABLE, NO ACUTE S/S OF DISTRESS;WILL CONTINUE TO OBSERVE.
--- NOTE | 2017-12-30 19:45 | NUR ---
PT AWAKE SITTING UP IN BED WATCHING TELEVISION. PT AOX3, ABLE TO COMMUNICATE NEEDS. SLIGHT SLURRED SPEECH NOTED; L UPPER ARM FLACCID. ABLE TO MOVE R ARM AND BLE UPON COMMAND. DIM BREATH SOUNDS. V PACED 80S, PACER NOTED TO L UPPER CHEST. ABD SOFT NON DISTENDED, F/C NOTED CLEAR YELLOW. R IJ ALEX CATH NOTED. SKIN INTACT. AFEBRILE. CAP REFILL >3SEC. PT DENIES CP/ SOB AT THIS TIME. NO OTHER S/S OF ACUTE DISTRESS NOTED. WILL CONTINUE TO OBSERVE.
[2017-12-30] MEDS: CARVEDILOL 3.125 MG TAB PO SCH (20:29)
--- NOTE | 2017-12-30 20:59 | NUR ---
NON-SUSTAINED VTACH X10 BEATS NOTED. PT DENIES CP/SOB @ THIS TIME. WILL CONTINUE TO OBSERVE.
--- NOTE | 2017-12-30 21:02 | NUR ---
NOTIFIED DR. Marietta LOPEZ ABOUT EPISODE OF VTACH. MD AWARE, AMIODARONE IV PROTOCOL ORDERED. SEE EMAR FOR FURTHER DETAILS. WILL CARRY OUT ORDERS. WILL CONTINUE TO MONITOR.
[2017-12-30] MEDS ORDERED: CARVEDILOL 3.125 MG TAB PO SCH (21:30)
[2017-12-30] MEDS ORDERED: AMIODARONE 150 MG in DEXTROSE 5% 100 ML IV SCH (22:00)
[2017-12-30] MEDS ORDERED: AMIODARONE 150 MG/3 ML VIAL IV ONE (22:09)
[2017-12-30] MEDS ORDERED: AMIODARONE 450 MG/9 ML VIAL IV ONE (22:09)
[2017-12-30] MEDS: AMIODARONE 450 MG in DEXTROSE 5% 250 ML IV SCH (22:21)
[2017-12-30 22:22] LABS: CREATINE KINASE MB 7.1 ng/mL (0-3.6)
--- NOTE | 2017-12-30 22:30 | NUR ---
AMIODARONE DRIP WITH BOLUS STARTED PER PROTOCOL VIA R IJ. NO S/S OF ACUTE DISTRESS. V PACED 80S. BP 111/62. WILL CONTINUE TO OBSERVE.
[2017-12-31] VITALS (21 sets, daily range): BP systolic 90–109; BP diastolic 50–75
--- NOTE | 2017-12-31 | NUR ---
PT ASLEEP TOLERATING IV AMIODARONE DRIP. VITAL SIGNS WNL. PT VPACED 80S ON MONITOR. NO ACUTE S/S OF DISTRESS NOTED. WILL CONTINUE TO OBSERVE.
--- NOTE | 2017-12-31 01:25 | NUR ---
NO ECTOPY NOTED, PT VPACED ON MONITOR. IV ON AMIODARONE IV PER PROTOCOL. WILL CONTINUE TO OBSERVE
--- NOTE | 2017-12-31 02:00 | NUR ---
PT REPOSITIONED. WILL CONTINUE TO OBSERVE.
--- NOTE | 2017-12-31 04:40 | NUR ---
PT ASLEEP AROUSABLE IN BED. AMIODARONE DRIP RATE CHANGED; TO 0.5 MG/MIN PER PROTOCOL. WILL CONTINUE TO MONITOR.
[2017-12-31] MEDS: PIPER/TAZO 2.25GM/D5W PREMIX 50 ML IV SCH ×3 (04:45→20:17)
--- NOTE | 2017-12-31 05:15 | NUR ---
LAB @ BEDSIDE, DRAWING FROM HD CATH WITH PIGTAIL.
[2017-12-31 06:10] LABS: ALBUMIN 2.4 g/dL (3.4-5.0); BILIRUBIN,DIRECT 1.6 mg/dL (0.0-0.3)
[2017-12-31 06:11] LABS: ALBUMIN 2.4 g/dL (3.4-5.0); ANION GAP 11.1 (8-16); CARBON DIOXIDE 29.1 mmol/L (21-32); CREATININE 2.1 mg/dL (0.7-1.3); POTASSIUM 3.2 mmol/L (3.5-5.1)
[2017-12-31 06:27] LABS: HEMATOCRIT 38.2 % (36-52); HEMOGLOBIN 12.4 g/dL (12.0-18.0); MEAN CORPUSCULAR HEMOGLOBIN 30 pg (27-31); MEAN CORPUSCULAR HGB CONC 32 g/dL (33-37); MEAN CORPUSCULAR VOLUME 91 fL (80-94); PLATELET COUNT (AUTO) 132 K/uL (140-450); RED CELL DISTRIBUTION WIDTH 16.8 % (11.6-13.7); WHITE BLOOD COUNT (AUTO) 14.1 K/uL (4.8-10.8)
[2017-12-31] MEDS ORDERED: AMIODARONE 450 MG/9 ML VIAL IV ONE (06:33)
[2017-12-31] MEDS: AMIODARONE 450 MG in DEXTROSE 5% 250 ML IV SCH (06:51)
--- NOTE | 2017-12-31 07:17 | NUR ---
GAVE REPORT TO RECEIVING AM NURSE. ORDERS, LABS, POC ENDORSED TO NEXT SHIFT. NO ACUTE DISTRESS NOTED.
--- NOTE | 2017-12-31 07:25 | NUR ---
REPORT RECEIVED FROM NIGHT NURSE. PT IS ASLEEP AND AROUSABLE TO NAME. ALERT AND ORIENTED X 4 WHEN AWAKE. VERBALLY RESPONSIVE AND ABLE TO MAKE NEEDS KNOWN. A. FIB ON MONITOR W/ 100% PACED W/ PACEMAKER TO LEFT UPPER CHEST. HX OF CVA W/ LEFT SIDED WEAKNESS. BILATERAL LUNGS SOUND CLEAR AND DIMINISHED. NO SOB NOTED. PT IS ON ROOM AIR. ALEX CATH W/ PIGTAIL TO RIGHT IJ AND PERIPHERAL IV G 22 TO RIGHT WRIST ASYMPTOMATIC, PATENT AND INTACT. PT RECEIVING AMIODARONE DRIP AT 0.5 MG/MIN. ABDOMEN SOFT, NONTENDER, BOWEL SOUNDS PRESENT. GENERALIZED EDEMA TO BUE/BLE. SKIN IS INTACT, DRY AND WARM TO TOUCH. HOB 30 DEGREES. BED IN LOWEST POSITION AND CALL LIGHT WITHIN REACH. WILL CONTINUE TO MONITOR.
--- NOTE | 2017-12-31 07:26 | NUR ---
GARCIA CATH IN PLACE, DRAINING CLOUDY, YELLOW URINE. GARCIA CATHETER CARE PROVIDED. NO C/O PAIN OR BURNING AT THE SITE.
[2017-12-31 07:41] LABS: BASOPHILS % (MANUAL) 0 % (0-2); EOSINOPHILS % (MANUAL) 2 % (0-4); LYMPHOCYTES % (MANUAL) 11 % (20-46); MONOCYTES % (MANUAL) 6 % (5-12)
--- NOTE | 2017-12-31 07:50 | NUR ---
PT HAVING BREAKFAST. O2 SAT FLUCTUATES BETWEEN 85-95% ON ROOM AIR. PT WAS PUT ON O2 AT 2 LPM/NC PER DR. LIU AT BEDSIDE.
--- NOTE | 2017-12-31 07:55 | NUR ---
PT SEEN AND EXAMINED BY DR. LIU. AWARE OF EDEMA ON EXTREMITIES. WILL FOLLOW UP ON ORDERS.
[2017-12-31] MEDS ORDERED: POTASSIUM CHLORIDE 10 MEQ TABER PO SCH (08:30)
[2017-12-31] MEDS: FUROSEMIDE 40 MG TAB PO SCH (08:39)
[2017-12-31] MEDS: ASPIRIN 81 MG TAB.CHEW PO SCH (08:39)
[2017-12-31] MEDS: CARVEDILOL 3.125 MG TAB PO SCH ×2 (08:42→21:00)
[2017-12-31] MEDS: KCL 20 MEQ/WATER INJ PREMIX 100 ML IV SCH ×2 (08:42→10:28)
--- NOTE | 2017-12-31 08:43 | NUR ---
ADMINISTERED MEDICATIONS. PT TOLERATED WELL. BP 97/60, COREG HELD.
[2017-12-31 08:47] LABS: MAGNESIUM 1.8 mg/dL (1.8-2.4); PHOSPHORUS 2.9 mg/dL (2.5-4.9)
[2017-12-31] MEDS ORDERED: VANCOMYCIN 1GM/DEXT 5% PREMIX 200 ML IV SCH (09:30)
--- NOTE | 2017-12-31 09:49 | NUR ---
DR. NEELY IN TO SEE AND EXAMINE PT. UPDATES GIVEN ON PT'S CONDITION. WILL FOLLOW UP ON ORDERS.
--- NOTE | 2017-12-31 09:50 | NUR ---
PER DR. NEELY, DISCONTINUE LEVOTHYROXINE FOR NOW UNTIL FURTHER ORDER. ORDER NOTED.
--- NOTE | 2017-12-31 11:04 | NUR ---
PT SEEN AND EXAMINED BY DR. JESSICA Mcmanus WILL FOLLOW UP ON ORDERS. PT IS AAOX4, VERBALLY RESPONSIVE. NO S/SX OF SOB OR ACUTE DISTRESS AT THIS TIME. WILL CONTINUE TO MONITOR.
--- NOTE | 2017-12-31 12:00 | NUR ---
PT C/O SOB. O2 SAT 99-100% ON O2 2LPM/NC. LUNGS SOUND CLEAR BILATERALLY. REPOSITIONED PT AND HOB AT 60 DEGREES. VITAL SIGNS STABLE. WILL CONTINUE TO MONITOR.
[2017-12-31 12:11] LABS: HEPATITIS A ANTIBODY IGM Negative (Negative); HEPATITIS B CORE AB TOTAL Negative (Negative); HEPATITIS B SURFACE ANTIBODY Non Reactive (.); HEPATITIS B SURFACE ANTIGEN Negative (Negative)
--- NOTE | 2017-12-31 12:20 | NUR ---
PT STILL FEELS SOB. INTERMITTENT, NON-PRODUCTIVE COUGH NOTED. PT TAKES OFF NASAL CANNULA. O2 SATURATION 100% ON ROOM AIR. LUNGS CLEAR. CALLED RT TO ASSESS PT. RT AT BEDSIDE. REPOSITIONED AND HOB UP. PAGED ON-CALL PHYSICIAN DR. ESQUEDA AND AWAITING CALL BACK.
--- NOTE | 2017-12-31 12:48 | NUR ---
PT BACK ON O2 AT 2 LPM/NC. VITAL SIGNS STABLE. INTERMITTENT, NON-PRODUCTIVE COUGH NOTED. RESTING COMFORTABLY AND NO C/O SOB AT THIS TIME. WILL CONTINUE TO MONITOR.
[2017-12-31 12:53] LABS: TRIIODOTHYRONINE FREE 1.9 pg/mL (2.0 - 4.4)
[2017-12-31] MEDS ORDERED: PROBIOTIC SCREEN 1 EA MISC MC PRN (14:10)
--- NOTE | 2017-12-31 14:10 | NUR ---
RECEIVED CALL BACK FROM DR. ESQUEDA, MADE AWARE OF PT'S C/O SOB. ORDER RECEIVED. PT IS SLEEPING COMFORTABLY AT THIS TIME. VITAL SIGNS STABLE. SAFETY MEASURES IN PLACE. WILL CONTINUE TO MONITOR.
[2017-12-31 14:54] LABS: ANION GAP 10.5 (8-16); CARBON DIOXIDE 29.1 mmol/L (21-32); CREATININE 2.1 mg/dL (0.7-1.3); POTASSIUM 3.6 mmol/L (3.5-5.1)
[2017-12-31 15:21] LABS: HEPATITIS B SURFACE ANTIBODY Non Reactive (.)
--- NOTE | 2017-12-31 15:32 | NUR ---
DR. ESQUEDA IN TO SEE AND EXAMINE PT. WILL FOLLOW UP ON ORDERS.
--- NOTE | 2017-12-31 16:24 | NUR ---
DR. JENSEN IN TO SEE PT. UPDATES GIVEN ON PT'S CONDITION. WILL FOLLOW UP ON ORDERS.
--- NOTE | 2017-12-31 17:52 | NUR ---
PT HAVING DINNER. NO SOB OR DISCOMFORT NOTED. VITAL SIGNS WNL. NEEDS WELL ATTENDED.
--- NOTE | 2017-12-31 19:18 | NUR ---
REPORT GIVEN TO NIGHT RN FOR CONTINUITY OF CARE. PT IS IN STABLE CONDITION.
--- NOTE | 2017-12-31 19:20 | NUR ---
REPORT RECEIVED FROM MORNING NURSETUSHAR RN. PT IS A&OX4. ABLE TO MAKE NEEDS KNOWN. PERRL. BILATERAL LUNG SOUNDS CLEAR. RIGHT IJ YEN CATH WITH A PIG TAIL AND RIGHT WRIST 22G. ALL PATENT AND ASYMPTOMATIC. AMIODARONE MAINTENANCE DRIP RUNNING AND PO AMIODARONE TO START TONIGHT. ON CONTINUOUS CARDIAC MONITORING AND PACING RHYTHM NOTED. RR EVEN & UNLABORED BUT SHALLOW. DENIES SOB. SATING 98% WITH 2L O2 VIA NC. AFEBRILE. DENIES PAIN OR DISCOMFORT. LEFT SIDE WEAKNESS NOTED DUE TO HX OF CVA. LEFT ARM NON-PITTING EDEMA NOTED. KEPT ELEVATED THE LEFT ARM WITH A PILLOW. CAP REFILL WITHIN 3 SEC. BOWEL SOUNDS ACTIVE AND ABDOMEN SOFT AND NON TENDER. GARCIA CATHETER DRAINING CLOUDY YELLOW URINE VIA GRAVITY. SKIN INTACT. CALL LIGHT IN REACH. HOB ELEVATED TO 30 DEGREES AND KEPT THE BED TO THE LOWEST. WILL CONTINUE TO MONITOR.
[2017-12-31] MEDS: AMIODARONE 200 MG TAB PO SCH (20:17)
--- NOTE | 2017-12-31 22:09 | NUR ---
PT ASKED FOR A SNACK. PROVIDED A TEMI CRACKER AND A JUICE BUT ASKED FOR A CHICKEN SANDWICH. ASSISTED WITH THE SET UP. PT FED SELF WELL.
--- NOTE | 2017-12-31 22:41 | NUR ---
PT WATCHING TV. NO S/SX OF ACUTE DISTRESS NOTED. ALL SAFETY PRECAUTIONS ARE IN PLACE. WILL CONTINUE TO MONITOR.
[2018-01-01] VITALS (11 sets, daily range): BP systolic 91–113; BP diastolic 24–70
--- NOTE | 2018-01-01 01:08 | NUR ---
PT ASLEEP. VS WITHOUT ACUTE DISTRESS. RR EVEN AND UNLABORED. NO S/SX OF PAIN OR DISCOMFORT. WILL CONTINUE TO MONITOR.
--- NOTE | 2018-01-01 02:55 | NUR ---
PT VS WITHOUT ACUTE DISTRESS. DENIES PAIN OR DISCOMFORT AT THIS TIME. ON O2 2L/MIN VIA NC. WILL CONTINUE TO MONITOR.
[2018-01-01] MEDS: PIPER/TAZO 2.25GM/D5W PREMIX 50 ML IV SCH ×3 (04:09→21:43)
--- NOTE | 2018-01-01 04:23 | NUR ---
VS WITHOUT ACUTE DISTRESS. RR EVEN AND UNLABORED. SHALLOW BREATHING. CONTINUING WITH O2 2L/MIN VIA NC. AFEBRILE. WILL CONTINUE TO MONITOR.
--- NOTE | 2018-01-01 05:27 | NUR ---
PROVIDED MORNING CARE, GARCIA CATH CARE, ORAL CARE, AND BED BATH. TOLERATED WELL. VS WITHOUT ACUTE DISTRESS. AFEBRILE. ALL SAFETY PRECAUTIONS ARE IN PLACE. WILL CONTINUE TO MONITOR.
[2018-01-01] MEDS: IPRATROPIUM 0.02% 0.5 MG/2.5 ML NEBU INH PRN ×2 (06:31→13:04)
--- NOTE | 2018-01-01 07:10 | NUR ---
RECEIVED BEDSIDE REPORT FROM PRACTICAL NURSING INSTRUCTOR RN, WANDA, FOR CONTINUITY OF CARE. PATIENT IS AAOX4, ABLE TO FOLLOW COMMANDS AND MAKE NEEDS KNOWN. PERRL. VS STABLE AND DENIES ANY PAIN AT THIS TIME. SKIN IS INTACT, WARM AND DRY, SLIGHT EDEMA TO THE UPPER EXTREMITIES. PATIENT HAS A RIGHT IJ ALEX CATHETER WITH PIGTAIL AND A PERIPHERAL IV 22 GAUGE TO THE RIGHT WRIST. UPPER BILATERAL LUNG SOUNDS ARE COARSE AND SYMMETRICAL AND LOWER BILATERAL LUNG SOUNDS ARE DIMINISHED AND SYMMETRICAL, PATIENT IS ON NASAL CANNULA 2L, O2 SAT IS 96. S1 AND S2 HEART SOUNDS HEARD, PATIENT HAS A PACEMAKER AND IS ON CONTINUOUS CARDIAC MONITORING WITH PACING NOTED. CAP REFILL IS LESS THAN 3 SECS. ABDOMEN IS SOFT AND NONTENDER, ACTIVE BOWEL SOUNDS HEARD IN ALL QUADS. PATIENT HAS A GARCIA CATHETER, PATENT AND IN PLACE TO CLEAR LIGHT RAD URINE. PATIENT'S HOB IS IN SEMI-EDWARDS IN THE LOWEST POSSIBLE POSITION. PATIENT PRESENTS NO SIGNS OF DISTRESS AT THIS TIME, CALL LIGHT WITHIN REACH, WILL PROVIDE CONTINUOUS MONITORING.
--- NOTE | 2018-01-01 07:28 | NUR ---
WEB USER EXPERIENCE STRATEGIST AT BEDSIDE, PATIENT IS IN NO SIGNS OF DISTRESS AT THIS TIME.
--- NOTE | 2018-01-01 08:20 | NUR ---
ORAL CARE PROVIDED, PATIENT TOLERATED WELL. GIVEN BREAKFAST TRAY, NO SIGNS OF DISTRESS NOTED. WILL CONTINUE TO MONITOR
[2018-01-01] MEDS: AMIODARONE 200 MG TAB PO SCH ×2 (08:50→21:00)
[2018-01-01] MEDS: FUROSEMIDE 40 MG TAB PO SCH ×2 (08:50→16:46)
[2018-01-01] MEDS: ASPIRIN 81 MG TAB.CHEW PO SCH (08:50)
[2018-01-01] MEDS: CARVEDILOL 3.125 MG TAB PO SCH ×2 (08:50→21:00)
[2018-01-01] MEDS ORDERED: SPIRONOLACTONE 25 MG TAB PO SCH (09:00)
--- NOTE | 2018-01-01 09:15 | NUR ---
PATIENT'S FAMILY AT BEDSIDE, UPDATED ON PATIENT'S CONDITION. NO SIGNS OF DISTRESS NOTED, WILL CONTINUE TO MONITOR.
[2018-01-01 09:49] LABS: BASOPHILS # (AUTO) 0.2 K/uL (0.00-0.22); BASOPHILS % (AUTO) 1.7 % (0.0-2.0); EOSINOPHILS # (AUTO) 0.3 K/uL (0-0.4); HEMATOCRIT 42.4 % (36-52); HEMOGLOBIN 13.5 g/dL (12.0-18.0); LYMPHOCYTES # (AUTO) 0.7 K/uL (2.0-11.5); LYMPHOCYTES % (AUTO) 6.4 % (20.5-51.1); MEAN CORPUSCULAR HEMOGLOBIN 29 pg (27-31); MEAN CORPUSCULAR HGB CONC 32 g/dL (33-37); MEAN CORPUSCULAR VOLUME 91 fL (80-94); MONOCYTES # (AUTO) 0.9 K/uL (0.8-1.0); MONOCYTES % (AUTO) 8.2 % (1.7-9.3); NEUTROPHILS # (AUTO) 9.4 K/uL (1.8-7.7); NEUTROPHILS % (AUTO) 80.7 % (42.2-75.2); PLATELET COUNT (AUTO) 136 K/uL (140-450); RED BLOOD CELL COUNT(AUTO) 4.68 MIL/uL (4.20-6.10); RED CELL DISTRIBUTION WIDTH 15.6 % (11.6-13.7); WHITE BLOOD COUNT (AUTO) 11.5 K/uL (4.8-10.8)
--- NOTE | 2018-01-01 09:50 | NUR ---
PT RESTING IN BED. NO RESPIRATORY DISTRESS NOTED. NO CHANGE IN LOC. HR 86 BP 113/64 SPO2 90%. WILL CONTINUE TO MONITOR.
[2018-01-01 10:05] LABS: ALBUMIN 2.2 g/dL (3.4-5.0); BILIRUBIN,DIRECT 1.4 mg/dL (0.0-0.3)
[2018-01-01 10:06] LABS: ALBUMIN 2.2 g/dL (3.4-5.0); ANION GAP 12.2 (8-16); CARBON DIOXIDE 28.1 mmol/L (21-32); CREATININE 1.9 mg/dL (0.7-1.3); POTASSIUM 3.3 mmol/L (3.5-5.1)
--- NOTE | 2018-01-01 10:12 | NUR ---
DR. NEELY IN TO SEE PATIENT, UPDATED ON PATIENT'S CONDITION. PATIENT PRESENTS NO SIGNS OF DISTRESS AT THIS TIME. WILL FOLLOW UP ON ANY ORDERS.
--- NOTE | 2018-01-01 11:09 | NUR ---
RT AT BEDSIDE. PT ON BREATHING TREATMENT.
--- NOTE | 2018-01-01 11:58 | NUR ---
PATIENT GIVEN LUNCH TRAY, NO SIGNS OF DISTRESS AT THIS TIME, PATIENT IN STABLE CONDITION, WATCHING TV. CALL LIGHT WITHIN REACH, WILL CONTINUE TO MONITOR.
[2018-01-01] MEDS: VANCOMYCIN 1,250 MG in DEXTROSE 5% 250 ML IV SCH (12:05)
--- NOTE | 2018-01-01 12:20 | NUR ---
IN TO SEE PATIENT, UPDATED ON PATIENT'S CONDITION. WILL FOLLOW UP ON ANY ORDERS.
[2018-01-01] MEDS: POTASSIUM CHLORIDE 10 MEQ TABER PO SCH ×2 (13:47→16:47)
--- NOTE | 2018-01-01 14:00 | NUR ---
FAMILY AT BEDSIDE, PATIENT PRESENTS NO SIGNS OF DISTRESS AT THIS TIME. WILL CONTINUE TO MONITOR
--- NOTE | 2018-01-01 14:58 | NUR ---
FAXED INITIAL REVIEW TO [facility] [phone] PHONE LEIGHA [phone] Addendum: 01/01/18 at 1500 by Lona Pedraza CM IGNORE ABOVE NOTES, WRONG PATIENT.
[2018-01-01] MEDS ORDERED: MAG SULF 2000 MG/WATER PREMIX 50 ML IV SCH (15:00)
--- NOTE | 2018-01-01 15:35 | NUR ---
DR. LOPEZ AT PT BEDSIDE EVALUATING PT. WILL FOLLOW UP ON ORDER.
--- NOTE | 2018-01-01 15:38 | NUR ---
PT RESTING IN BED. NO RESPIRATORY DISTRESS. NO CHANGE IN LOC. WILL CONTINUE TO MONITOR.
--- NOTE | 2018-01-01 17:04 | NUR ---
INITIAL REVIEW FAXED TO [facility] [phone] PHONE LEIGHA [phone]
--- NOTE | 2018-01-01 17:10 | NUR ---
IN TO SEE PATIENT, UPDATED ON PATIENT'S CONDITION. WILL FOLLOW UP ON ANY ORDERS.
--- NOTE | 2018-01-01 17:18 | NUR ---
PT RESTING IN BED. NO RESPIRATORY DISTRESS. NO CHANGE IN LOC. PACED RHYTHM ON MONITOR. WILL CONTINUE TO MONITOR.
--- NOTE | 2018-01-01 17:37 | NUR ---
AT 1720. CHECKED RESIDUAL, WAS 110. HELD GTUBE FEEDING. KEPT HOB ELEVATED. Addendum: 01/01/18 at 1739 by Sophia Angel RN WRONG CHARTING
--- NOTE | 2018-01-01 19:00 | NUR ---
TRANSFERRED PATIENT TO [facility], ENDORSED CARE TO [facility] RN, MARYBETH, FOR CONTINUITY OF CARE.
--- NOTE | 2018-01-01 19:10 | NUR ---
RECEIVED PATIENT REPORT AT BEDSIDE FROM ICU NURSE, PATIENT IS AAOX4 AND SHOWS NO S/S OF ACUTE DISTRESS ON ROOM AIR, NOTED RIGHT IJ SL, BUE/BLE EDEMA, GARCIA CATHETER WITH YELLOW URINE DRAINING, LEFT SIDED WEAKNESS, ON TELE MONITOR. DENIES PAIN. ALL NEEDS MET AT THIS TIME. BED IN LOW POSITION WITH CALL LIGHT WITHIN REACH.
--- NOTE | 2018-01-01 19:15 | NUR ---
GAVE PATIENT REPORT AT BEDSIDE TO NIGHT NURSE, PATIENT ENDORSED IN STABLE CONDITION.
--- NOTE | 2018-01-01 19:16 | NUR ---
RECEIVED PATIENT LYING ON BED ON COMFORTABLE POSITION WITH GARCIA CATHETER. BED IN LOW POSITION. CALL LIGHT WITHIN REACH. WILL CONTINUE TO MONITOR.
--- NOTE | 2018-01-01 21:56 | NUR ---
DUE MEDS FOR BP NOT GIVEN DUE TO BP IS LOW 95/70.
[2018-01-02] VITALS: BP 94/64
--- NOTE | 2018-01-02 01:00 | NUR ---
SEEN PATIENT ASLEEP ON BED. BED ON LOW POSITION. CALL LIGHTS WITHIN REACH.
[2018-01-02] MEDS: PIPER/TAZO 2.25GM/D5W PREMIX 50 ML IV SCH ×3 (05:20→20:42)
[2018-01-02 05:46] VITALS: BP 93/47
--- NOTE | 2018-01-02 07:20 | NUR ---
PT AWAKE, NO DISTRESS NOTED, BEDSIDE REPORT GIVEN TO RN ERIC FOR CONTINUITY OF CARE.
--- NOTE | 2018-01-02 07:30 | NUR ---
RECEIVED REPORT FROM AM NURSE AT BEDSIDE, PT IS AAOX4, ABLE TO FOLLOW COMMANDS AND MAKE NEEDS KNOW, SEFERINO PAIN, VSS. CENTRAL LINE TO RIGHT IJ TLC NOTED, PATENT, SL, NO S/S OF DISTRESS, DIMINISHED LUNG SOUNDS, ON RA, SR ON TELE MONITOR, SOFT ABDOMEN WITH ACTIVE BOWEL SOUNDS, GARCIA CATHETER IN PLACE WITH CLEAR YELLOW URINE NOTED. SKIN IS INTACT, WARM AND DRY TO TOUCH, GENERALIZED WEAKNESS NOTED. SAFETY MEASURES IN PLACE, CALL LIGHT WITHIN REACH. WILL CONTINUE TO MONITOR.
[2018-01-02 08:00] VITALS: BP 96/72
[2018-01-02 08:42] LABS: BASOPHILS # (AUTO) 0.3 K/uL (0.00-0.22); BASOPHILS % (AUTO) 2.6 % (0.0-2.0); EOSINOPHILS # (AUTO) 0.3 K/uL (0-0.4); EOSINOPHILS % (AUTO) 2.7 % (0.0-4.0); HEMATOCRIT 41.3 % (36-52); HEMOGLOBIN 13.7 g/dL (12.0-18.0); LYMPHOCYTES # (AUTO) 1.1 K/uL (2.0-11.5); LYMPHOCYTES % (AUTO) 10.9 % (20.5-51.1); MEAN CORPUSCULAR HEMOGLOBIN 29 pg (27-31); MEAN CORPUSCULAR HGB CONC 33 g/dL (33-37); MEAN CORPUSCULAR VOLUME 88 fL (80-94); MONOCYTES # (AUTO) 1.3 K/uL (0.8-1.0); MONOCYTES % (AUTO) 12.8 % (1.7-9.3); NEUTROPHILS # (AUTO) 7.4 K/uL (1.8-7.7); PLATELET COUNT (AUTO) 156 K/uL (140-450); RED BLOOD CELL COUNT(AUTO) 4.68 MIL/uL (4.20-6.10); RED CELL DISTRIBUTION WIDTH 16.5 % (11.6-13.7); WHITE BLOOD COUNT (AUTO) 10.4 K/uL (4.8-10.8)
[2018-01-02] MEDS: AMIODARONE 200 MG TAB PO SCH ×2 (09:00→20:43)
[2018-01-02] MEDS: CARVEDILOL 3.125 MG TAB PO SCH ×2 (09:00→20:45)
--- NOTE | 2018-01-02 09:00 | NUR ---
SCHEDULED MEDICATION GIVEN ORDERED, PT TOLERATED WELL.
[2018-01-02] MEDS: FUROSEMIDE 40 MG TAB PO SCH ×2 (09:01→16:42)
[2018-01-02] MEDS: ASPIRIN 81 MG TAB.CHEW PO SCH (09:02)
[2018-01-02] MEDS: SPIRONOLACTONE 25 MG TAB PO SCH (09:03)
[2018-01-02 09:41] LABS: ALBUMIN 2.2 g/dL (3.4-5.0); CARBON DIOXIDE 26.5 mmol/L (21-32); CREATININE 1.6 mg/dL (0.7-1.3); POTASSIUM 3.5 mmol/L (3.5-5.1)
[2018-01-02] MEDS: VANCOMYCIN 1,250 MG in DEXTROSE 5% 250 ML IV SCH (11:20)
[2018-01-02 12:00] VITALS: BP 98/70
--- NOTE | 2018-01-02 12:00 | NUR ---
PT IS LYING ON BED RESTING, NO S/S OF DISTRESS, DENIES PAIN, VSS.
[2018-01-02] MEDS ORDERED: POTASSIUM CHLORIDE 10 MEQ TABER PO SCH (13:00)
[2018-01-02] MEDS: SODIUM PHOS / POTASSIUM PHOS 1 PKT PDR PO SCH ×2 (13:49→16:42)
--- NOTE | 2018-01-02 15:15 | NUR ---
REMOVED ALEX CATH TO RIJ ORDERED, NO BLEEDING NOTED, COVERED WITH DRY GAUZE, PT TOLERATED WELL.
--- NOTE | 2018-01-02 15:40 | NUR ---
FAXED CONCURRENT REVIEW TO [facility] [phone] PHONE LEIGHA [phone]
[2018-01-02 16:00] VITALS: BP 112/72
--- NOTE | 2018-01-02 19:08 | NUR ---
REPORT GIVEN TO JUNIOR MEDIA BUYER NURSE AT BEDSIDE FOR CONTINUE OF CARE, PT IS IN STABLE CONDITION AT THIS TIME.
--- NOTE | 2018-01-02 19:10 | NUR ---
RECEIVED PT SLEEPING, EASILY AROUSABLE, VITAL SIGNS TAKEN, BP ON THE LOW SIDE BUT STABLE, DENIES ANY PAIN, NO IV LINE AT THIS TIME, WILL START A NEW ONE FOR IV ANTIBIOTICS, NO BLEEDING NOTED ON PREVIOUS RT IJ ALEX CATHETER, GARCIA CATHETER IN PLACE DRAINING WELL, DRESSING DRY AND INTACT, PLAN OF CARE DISCUSSED, SAFETY MEASURES IN PLACE, SIDE RAILS UP AND BED ALARM ON, CALL LIGHT WITHIN REACH.
[2018-01-02 20:00] VITALS: BP 96/62
--- NOTE | 2018-01-02 20:30 | NUR ---
DUE MEDS ADMINISTERED WITH EDUCATION PROVIDED, ALL NEEDS ATTENDED.
[2018-01-03] VITALS: BP 96/69
[2018-01-03] MEDS ORDERED: ZOLPIDEM 5 MG TAB PO PRN (00:35)
--- NOTE | 2018-01-03 00:50 | NUR ---
PT REQUESTING FOR SLEEPING PILL, PAGED DR HIRSCH WITH NEW ORDER, OK CLARKE GIVEN PRN, SAFETY MEASURES IN PLACE, BED ALARM ON AND CALL LIGHT WITHIN REACH.
[2018-01-03 04:00] VITALS: BP 102/73
--- NOTE | 2018-01-03 04:05 | NUR ---
PT SLEEPING, EASILY AROUSABLE, VITAL SIGNS STABLE, PACED RHYTHM ON THE MONITOR, DENIES ANY PAIN, NO SOB NOTED, IVPB ZOSYN ADMINISTERED, MONITORED CLOSELY.
[2018-01-03] MEDS: PIPER/TAZO 2.25GM/D5W PREMIX 50 ML IV SCH ×2 (04:08→15:31)
[2018-01-03 07:07] LABS: BASOPHILS # (AUTO) 0.2 K/uL (0.00-0.22); BASOPHILS % (AUTO) 1.7 % (0.0-2.0); EOSINOPHILS # (AUTO) 0.2 K/uL (0-0.4); HEMATOCRIT 43.9 % (36-52); HEMOGLOBIN 14.1 g/dL (12.0-18.0); LYMPHOCYTES # (AUTO) 0.9 K/uL (2.0-11.5); MEAN CORPUSCULAR HEMOGLOBIN 29 pg (27-31); MEAN CORPUSCULAR HGB CONC 32 g/dL (33-37); MEAN CORPUSCULAR VOLUME 91 fL (80-94); MONOCYTES # (AUTO) 1.4 K/uL (0.8-1.0); MONOCYTES % (AUTO) 13.8 % (1.7-9.3); NEUTROPHILS # (AUTO) 7.5 K/uL (1.8-7.7); NEUTROPHILS % (AUTO) 73.5 % (42.2-75.2); PLATELET COUNT (AUTO) 161 K/uL (140-450); RED BLOOD CELL COUNT(AUTO) 4.85 MIL/uL (4.20-6.10); RED CELL DISTRIBUTION WIDTH 16.5 % (11.6-13.7); WHITE BLOOD COUNT (AUTO) 10.2 K/uL (4.8-10.8)
--- NOTE | 2018-01-03 07:15 | NUR ---
PT AWAKE, NO DISTRESS NOTED, BEDSIDE REPORT GIVEN TO RN MARIZA FOR CONTINUITY OF CARE.
--- NOTE | 2018-01-03 07:30 | NUR ---
ENDORSEMENT RECEIVED FROM CHAINSTITCH ELASTIC ATTACHER NURSE. PATIENT IS AWAKE, ALERT. RESPIRATION EVEN, UNLABOR ON ROOM AIR. SKIN DRY AND WARM. IV PATENT AND INTACT. DENIED PAIN, SOB AT THIS TIME. NO DISTRESS NOTED. PLAN OF CARE WAS DISCUSSED WITH PATIENT. BED AT LOW POSITION, SIDE RAILS UP. CALL LIGHT WITHIN REACH
[2018-01-03 07:40] LABS: ALBUMIN 2.3 g/dL (3.4-5.0); ANION GAP 13.7 (8-16); CARBON DIOXIDE 25.1 mmol/L (21-32); CREATININE 1.6 mg/dL (0.7-1.3); POTASSIUM 3.8 mmol/L (3.5-5.1); TOTAL BILIRUBIN 3.3 mg/dL (0.0-1.0)
[2018-01-03 08:00] VITALS: BP 104/72
[2018-01-03] MEDS: SODIUM PHOS / POTASSIUM PHOS 1 PKT PDR PO SCH (08:59)
[2018-01-03] MEDS: AMIODARONE 200 MG TAB PO SCH (08:59)
[2018-01-03] MEDS: SPIRONOLACTONE 25 MG TAB PO SCH (09:00)
[2018-01-03] MEDS: CARVEDILOL 3.125 MG TAB PO SCH (09:00)
[2018-01-03] MEDS: ASPIRIN 81 MG TAB.CHEW PO SCH (09:00)
[2018-01-03] MEDS: FUROSEMIDE 40 MG TAB PO SCH (09:00)
--- NOTE | 2018-01-03 10:00 | NUR ---
PATIENT IS SLEEPING COMFORTABLY. RESPIRATION EVEN, UNLABOR ON ROOM AIR. NO DISTRESS NOTED AT THIS TIME. CALL LIGHT WITHIN REACH
[2018-01-03 12:00] VITALS: BP 95/65
[2018-01-03] MEDS: VANCOMYCIN 1,250 MG in DEXTROSE 5% 250 ML IV SCH (13:05)
--- NOTE | 2018-01-03 13:08 | NUR ---
CM NOTE CONCURRENT REVIEW FAXED TO [facility] / FAX# [phone], ATTN: LEIGHA #[phone]
[2018-01-03] MEDS ORDERED: WARFARIN 1 MG TAB PO SCH (13:31)
--- NOTE | 2018-01-03 13:37 | NUR ---
GARCIA WAS REMOVED, 8ML OF WATER WAS REMOVED FROM BALLOON. UNRINE AMOUNT 1050 ML, CLEAR, RAD COLOR, URINAL IS AT BEDSIDE. PATIENT TOLERATED WELL
[2018-01-03] MEDS ORDERED: AMOX-999 PO (14:46)
[2018-01-03] MEDS ORDERED: AMIO100T3 PO (14:47)
[2018-01-03] MEDS ORDERED: ASPI81CT89 PO (14:48)
[2018-01-03] MEDS ORDERED: CARV3.12 PO (14:49)
[2018-01-03] MEDS ORDERED: FURO-570 PO (14:49)
[2018-01-03] MEDS ORDERED: ALBU0.0912 IH (14:51)
[2018-01-03] MEDS ORDERED: ATRMDI IH (14:51)
[2018-01-03 16:00] VITALS: BP 91/61
--- NOTE | 2018-01-03 16:30 | NUR ---
DISCHARGE INSTRUCTION WAS GIVEN AND EXPLAINED TO THE PATIENT. PATIENT VERBALIZED UNDERSTANDING. IV WAS REMOVED, CATHETER INTACT, NO ACTIVE BLEEDING SEEN, PATIENT TOLERATED WELL. ID WAS REMOVED. ALL BELONGINGS WERE TAKEN WITH THE PATIENT. MANAGER COLLECTION WAS REMOVED. PATIENT WAS ESCORTED OUT IN WHEELCHAIR BY STAFF./ PATIENT IS STABLE AT THIS TIME
== END 2018-01-03 16:40 | disposition home or self-care (01) | DRG 720 ==
LOC: MED 21:48 → MTU 12-30 00:47 → MIC 12-30 03:55 → MTU 01-01 19:37
PROVIDERS: ADMIT Hospitalist; ATTEND Hospitalist
PROC: 02HV33Z Insertion of Infusion Device into Superior Vena Cava, Percutaneous Approach (ICD-10-PCS; principal; 2017-12-30)
PROC: B548ZZA Ultrasonography of Superior Vena Cava, Guidance (ICD-10-PCS; 2017-12-30)
PROC: 5A1D70Z Performance of Urinary Filtration, Intermittent, Less than 6 Hours Per Day (ICD-10-PCS; 2017-12-30)
DX: A41.9 Sepsis, unspecified organism (principal); J96.00 Acute respiratory failure, unspecified whether with hypoxia or hypercapnia; R65.21 Severe sepsis with septic shock; I50.23 Acute on chronic systolic (congestive) heart failure; N17.9 Acute kidney failure, unspecified; I48.92 Unspecified atrial flutter; I42.0 Dilated cardiomyopathy; E83.42 Hypomagnesemia; E86.0 Dehydration; I48.2 Chronic atrial fibrillation; K72.90 Hepatic failure, unspecified without coma; I69.354 Hemiplegia and hemiparesis following cerebral infarction affecting left non-dominant side; E87.5 Hyperkalemia; E87.6 Hypokalemia; F10.10 Alcohol abuse, uncomplicated; F17.200 Nicotine dependence, unspecified, uncomplicated; I25.10 Atherosclerotic heart disease of native coronary artery without angina pectoris; I25.2 Old myocardial infarction; J44.9 Chronic obstructive pulmonary disease, unspecified; F15.90 Other stimulant use, unspecified, uncomplicated; F19.10 Other psychoactive substance abuse, uncomplicated; I13.0 Hypertensive heart and chronic kidney disease with heart failure and stage 1 through stage 4 chronic kidney disease, or unspecified chronic kidney disease; N18.9 Chronic kidney disease, unspecified; Z95.810 Presence of automatic (implantable) cardiac defibrillator
CPT/HCPCS: 36415; 36600; 71045; 76700; 80048; 80053; 80076; 80162; 80202; 80305; 81001; 82533; 82550; 82553; 82570; 82803; 82948; 83036; 83605; 83735; 83880; 84100; 84300; 84439; 84443; 84481; 84484; 85025; 85610; 86704; 86706; 86708; 86709; 86803; 87040; 87081; 87086; 87340; 90935; 93005; 94640; 96361; 96374; 96375; 97140; 99291; J0282; J0610; J1644; J1815; J2060; J2543; J3370; J3475; J3480; J7030; J7060; J7613; J7644; Q0092

== ENCOUNTER 2018-02-06 22:16 | Emergency (ER) | payer OTHER ==
[~2018-02-06] VITALS: Ht 182.9 cm; Wt 87.5 kg
[~2018-02-06 22:16] MED LIST changes: +ACET-8386 PO; +ALBU0.0912 IH; +ALPR0.5O4 PO; +AMIO100T3 PO; +AMOX-999 PO; +ASPI81CT89 PO; +ATRMDI IH; +CARV3.12 PO; -DIGO0.121 PO; +DIGO0.122 PO; +FURO-570 PO; +NITR0.4S14 SL
[2018-02-06 22:22] VITALS: BP 106/59
[2018-02-06] MEDS ORDERED: WARF-99 PO (22:41)
[2018-02-06] MEDS ORDERED: METO25TA14 PO (22:41)
[2018-02-06 23:41] LABS: BASOPHILS # (AUTO) 0.1 K/uL (0.00-0.22); BASOPHILS % (AUTO) 1.3 % (0.0-2.0); EOSINOPHILS # (AUTO) 0.1 K/uL (0-0.4); EOSINOPHILS % (AUTO) 1.2 % (0.0-4.0); HEMOGLOBIN 12.8 g/dL (12.0-18.0); LYMPHOCYTES # (AUTO) 1.4 K/uL (2.0-11.5); LYMPHOCYTES % (AUTO) 14.7 % (20.5-51.1); MEAN CORPUSCULAR HEMOGLOBIN 28 pg (27-31); MEAN CORPUSCULAR HGB CONC 31 g/dL (33-37); MONOCYTES # (AUTO) 0.8 K/uL (0.8-1.0); MONOCYTES % (AUTO) 7.9 % (1.7-9.3); NEUTROPHILS # (AUTO) 7.1 K/uL (1.8-7.7); NEUTROPHILS % (AUTO) 74.9 % (42.2-75.2); PLATELET COUNT (AUTO) 272 K/uL (140-450); RED BLOOD CELL COUNT(AUTO) 4.61 MIL/uL (4.20-6.10); WHITE BLOOD COUNT (AUTO) 9.5 K/uL (4.8-10.8)
[2018-02-06 23:51] LABS: ANION GAP 18.4 (8-16); CARBON DIOXIDE 19.4 mmol/L (21-32); CREATININE 1.7 mg/dL (0.7-1.3); POTASSIUM 4.8 mmol/L (3.5-5.1)
[2018-02-07 00:03] LABS: ALBUMIN 2.9 g/dL (3.4-5.0); TOTAL BILIRUBIN 1.7 mg/dL (0.0-1.0)
[2018-02-07 01:08] LABS: APPEARANCE,URINE CLEAR (CLEAR); BILIRUBIN,URINE 1+ (NEGATIVE); BLOOD, URINE TRACE-I (NEGATIVE); COLOR,URINE YELLOW (YELLOW); LEUKOCYTE ESTERASE ,URINE NEGATIVE (NEGATIVE); NITRITE, URINE NEGATIVE (NEGATIVE); PH,URINE 5.5 (5.0-9.0); UGLUCOSE NEGATIVE (NEGATIVE)
[2018-02-07 01:25] LABS: RBC,URINE 0-5 (RARE) /HPF (0-5); WBC,URINE NONE SEEN /HPF (0-5)
[2018-02-07] MEDS ORDERED: ALBUTEROL 0.083% 2.5 MG/3 ML NEBU INH ONE (01:25)
[2018-02-07] MEDS ORDERED: LORazepam 0.5 MG TAB PO ONE (01:25)
[2018-02-07] MEDS ORDERED: IPRATROPIUM 0.02% 0.5 MG/2.5 ML NEBU INH ONE (01:25)
[2018-02-07] MEDS ORDERED: AZITHROMYCIN 250 MG TAB PO ONE (01:25)
[2018-02-07 02:08] LABS: PROTHROMBIN TIME 39.5 secs (10.8-13.4)
[2018-02-07 02:18] VITALS: BP 126/95
== END 2018-02-07 02:18 | disposition home or self-care (01) ==
LOC: MED 22:16
DX: J20.9 Acute bronchitis, unspecified (principal); R60.9 Edema, unspecified; F41.9 Anxiety disorder, unspecified; I25.2 Old myocardial infarction; I12.9 Hypertensive chronic kidney disease with stage 1 through stage 4 chronic kidney disease, or unspecified chronic kidney disease; N18.3 Chronic kidney disease, stage 3 (moderate); Z86.73 Personal history of transient ischemic attack (TIA), and cerebral infarction without residual deficits
CPT/HCPCS: 36415; 71045; 80053; 81001; 83880; 85025; 85610; 93005; 94640; 99285; J7613; J7644; Q0092

== ENCOUNTER 2018-02-21 20:00 | Inpatient (IN) | payer OTHER ==
[~2018-02-21] VITALS: Ht 182.9 cm; Wt 87.5 kg
[~2018-02-21 20:00] MED LIST changes: -ACET-8386 PO; -ALPR0.5O4 PO; -AMIO100T3 PO; -AMOX-999 PO; -ASPI81CT89 PO; -CARV3.12 PO; -FURO-570 PO; -METO25TA PO; +METO25TA14 PO; -SPIR50TA PO; +WARF-99 PO; -WARF3TAB PO
[2018-02-21 20:06] VITALS: BP 128/67
--- NOTE | 2018-02-21 20:15 | NUR ---
TO ER BED 2
--- NOTE | 2018-02-21 20:25 | NUR ---
ASSUMED CARE OF PT AT THIS TIME. 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 PT IN MODERATE DISCOMFORT S/T SOB AND SPEAKS IN SHORT SENTENCES. MD CHRISTAINSON NOTIFIED; WILL NOTIFY RT. PT DENIES CP. DENIES N/V/D; SKIN IS PINK/WARM/DRY; AAOX4 WITH EVEN AND STEADY GAIT; LUNGS CLEAR BL; HR EVEN AND REGULAR; PT DENIES ANY FEVER AT THIS TIME; PATIENT STATES PAIN OF 0/10 AT THIS TIME; VSS; PATIENT POSITIONED FOR COMFORT; HOB ELEVATED; BEDRAILS UP X2; BED DOWN. ER MD MADE AWARE OF PT STATUS.
[2018-02-21] MEDS ORDERED: ALBUTEROL SULFATE/IPRATROPIU 3 ML SOL IH ONE (20:30)
[2018-02-21] MEDS ORDERED: ALBUTEROL 0.083% 2.5 MG/3 ML NEBU INH ONE (20:30)
[2018-02-21] MEDS ORDERED: predniSONE 20 MG TAB PO ONE (20:30)
[2018-02-21 21:26] LABS: BASOPHILS % (AUTO) 0.2 % (0.0-2.0); EOSINOPHILS # (AUTO) 0.2 K/uL (0-0.4); EOSINOPHILS % (AUTO) 2.9 % (0.0-4.0); HEMATOCRIT 45.7 % (36-52); HEMOGLOBIN 14.3 g/dL (12.0-18.0); LYMPHOCYTES # (AUTO) 1.1 K/uL (2.0-11.5); LYMPHOCYTES % (AUTO) 14.4 % (20.5-51.1); MEAN CORPUSCULAR HEMOGLOBIN 28 pg (27-31); MEAN CORPUSCULAR HGB CONC 31 g/dL (33-37); MONOCYTES # (AUTO) 0.5 K/uL (0.8-1.0); NEUTROPHILS # (AUTO) 5.7 K/uL (1.8-7.7); NEUTROPHILS % (AUTO) 75.5 % (42.2-75.2); PLATELET COUNT (AUTO) 261 K/uL (140-450); RED CELL DISTRIBUTION WIDTH 20.4 % (11.6-13.7); WHITE BLOOD COUNT (AUTO) 7.6 K/uL (4.8-10.8)
[2018-02-21 21:41] LABS: PROTHROMBIN TIME 47.2 secs (10.8-13.4)
[2018-02-21] MEDS ORDERED: FUROSEMIDE 40 MG/4 ML VIAL IVP ONE (22:10)
[2018-02-21] MEDS ORDERED: ALBUTEROL HFA MDI 90 MCG/ACTUATION 8 GM INH SCH (22:55)
[2018-02-21] MEDS ORDERED: ACETAMINOPHEN 325 MG TAB PO PRN (22:55)
[2018-02-21] MEDS ORDERED: HYDROcodone/APAP 5/325 MG 1 TAB TAB PO PRN (22:55)
[2018-02-21] MEDS ORDERED: ONDANSETRON 4 MG/2 ML VIAL IVP PRN (22:55)
[2018-02-21] MEDS ORDERED: LORazepam 2 MG/ML VIAL IVP PRN (22:55)
--- NOTE | 2018-02-21 23:00 | NUR ---
Patient will be admitted to care of MD ANTHONY. Admited to TELE. Will go to room 111B. Belongings list completed.
--- NOTE | 2018-02-21 23:10 | NUR ---
RECEIVED FROM ER PER ANDRES AWAKE AND ALERT. ACCOMPANIED BY A FRIEND. ABLE TO VERBALIZE NEEDS WELL IN [place]. DX. OF CHF EXACERBATION AND SOB. PT. BEEN IN AND OUT OF HOSPITALS PER PT. WELL ORIENTED TO CALL LIGHT AND BED. RE-ORIENTED TO CALL LIGHT USE AND ENCOURAGED TO CALL FOR ANY HELP OR ANY PAIN HE MIGHT HAVE. CALL LIGHT AT BEDSIDE EASILY ACCESSED. SKIN INTACT. WILL BE TURNED Q 2H. TELEMETRY MONITORING. IVF TO RIGHT WRIST #22. INTACT AND NOT INFILTRATED. CARE PLANS FOR THE NIGHT EXPLAINED TO PT.
[2018-02-22] VITALS: BP 112/89
[2018-02-22 00:29] LABS: ANION GAP 20.3 (8-16); CREATININE 1.8 mg/dL (0.7-1.3); POTASSIUM 4.3 mmol/L (3.5-5.1)
[2018-02-22 00:35] LABS: ALBUMIN 3.2 g/dL (3.4-5.0); TOTAL BILIRUBIN 1.5 mg/dL (0.0-1.0)
--- NOTE | 2018-02-22 01:22 | NUR ---
CHECKED ON PATIENT. PT ON 2 L NC. CLEAR BREATH SOUNDS. PT SAID HE IS NOT IN ANY TROUBLE BREATHING. HE ASKED TO BE REPOSITIONED. REPOSITIONED PT AND MADE COMFORTABLE. NO SOB OR DISTRESS NOTED. WILL CONTINUE TO MONITOR.
[2018-02-22 05:00] VITALS: BP 112/78
--- NOTE | 2018-02-22 06:42 | NUR ---
PT. AWAKE AND ALERT AT THIS TIME. ABLE TO VERBALIZE NEEDS WELL. PT. ON TELEMETRY MONITORING AND NO SOB COMPLAINTS THIS SHIFT. CALL LIGHT WITH IN REACH AT ALL TIMES. ABLE TO USE CALL LIGHT FOR HELP. ASSISTED WITH ADLS. CONDOM CATHETER IN PLACE RT WITH LASIX THERAPY AND COMPLAINED OF ALWAYS GETTING WET AND UNABLE TO CONTROL IT. HAPPY WITH THE RESULTS OF THE CONDOM CATHETER IN PLACE. TURNED PT. Q 2H SINCE ADMISSION AND PILLOW SUPPORT TO PRESSURE AREAS.
[2018-02-22 07:07] LABS: BASOPHILS % (AUTO) 0.5 % (0.0-2.0); EOSINOPHILS % (AUTO) 0.1 % (0.0-4.0); HEMATOCRIT 40.5 % (36-52); HEMOGLOBIN 12.8 g/dL (12.0-18.0); LYMPHOCYTES # (AUTO) 0.5 K/uL (2.0-11.5); LYMPHOCYTES % (AUTO) 8.3 % (20.5-51.1); MEAN CORPUSCULAR HEMOGLOBIN 28 pg (27-31); MEAN CORPUSCULAR HGB CONC 32 g/dL (33-37); MEAN CORPUSCULAR VOLUME 87.4 fL (80-94); MONOCYTES # (AUTO) 0.1 K/uL (0.8-1.0); MONOCYTES % (AUTO) 1.6 % (1.7-9.3); NEUTROPHILS # (AUTO) 5.8 K/uL (1.8-7.7); NEUTROPHILS % (AUTO) 89.5 % (42.2-75.2); PLATELET COUNT (AUTO) 223 K/uL (140-450); RED BLOOD CELL COUNT(AUTO) 4.64 MIL/uL (4.20-6.10); RED CELL DISTRIBUTION WIDTH 20.3 % (11.6-13.7); WHITE BLOOD COUNT (AUTO) 6.5 K/uL (4.8-10.8)
--- NOTE | 2018-02-22 07:30 | NUR ---
RECEIVED REPORT FROM SUPPORT SERVICES SPECIALIST NURSE DIANNA AT BEDSIDE FOR CONTINUITY OF CARE. PT IS AWAKE AND ORIENTED X4. INTRODUCED SELF AND UPDATED BOARD. PT DENIES CHEST PAIN. EDEMA NOTED ON L UPPER ARM AND BLE. CONDOM CATHETER IN PLACE. PT WITH L SIDED WEAKNESS. FALL RISK SIGN POSTED, YELLOW BAND ON. CALL LIGHT WITHIN REACH. WILL CONTINUE TO MONITOR.
[2018-02-22 08:05] LABS: ANION GAP 15.5 (8-16); CARBON DIOXIDE 23.7 mmol/L (21-32); CREATININE 1.7 mg/dL (0.7-1.3); POTASSIUM 4.2 mmol/L (3.5-5.1)
[2018-02-22 08:40] VITALS: BP 118/88
[2018-02-22] MEDS ORDERED: WARFARIN 2.5 MG TAB PO SCH (09:00)
[2018-02-22] MEDS ORDERED: DIGOXIN 0.125 MG TAB PO SCH (09:00)
[2018-02-22] MEDS ORDERED: ASPIRIN 81 MG TAB.CHEW PO SCH (09:00)
[2018-02-22] MEDS ORDERED: METOPROLOL 25 MG TAB PO SCH ×2 (09:00→21:00)
[2018-02-22] MEDS ORDERED: FUROSEMIDE 40 MG/4 ML VIAL IVP SCH ×3 (09:00→12:00)
--- NOTE | 2018-02-22 09:53 | NUR ---
PATIENT HAS BEEN SCREENED AND CATEGORIZED MODERATE NUTRITION RISK. PATIENT WILL BE SEEN WITHIN 3-5 DAYS OF ADMISSION. 02/24/18 - 02/26/[address]
--- NOTE | 2018-02-22 10:10 | NUR ---
PATIENT AWAKE AND ALERT. NO COMPLAINTS OF SOB. O2 SAT 97% ON ROOM AIR. WILL CONTINUE TO MONITOR.
--- NOTE | 2018-02-22 10:29 | NUR ---
ADMINISTERED SCHEDULED MEDS. NO ADMIN ASPIRIN AND WARFARIN DUE TO PT INR 4.[address] DESIR REQUEST FOR PT TO STOP TAKING ASPIRIN. PT WITH CONDOM CATHETER WAS LEAKING. CHANGED CONDOM AND LINENS. PT GOT UP TO USE BATHROOM WITH STEADY GAIT. ASSISTED TO BED. NO SIGNS OF DISTRESS. WILL CONTINUE TO MONITOR.
[2018-02-22] MEDS ORDERED: SPIR25TA13 (10:37)
[2018-02-22] MEDS ORDERED: HYDROcodone/APAP 5/325 MG 1 TAB TAB PO PRN (11:25)
[2018-02-22] MEDS ORDERED: LORazepam 2 MG/ML VIAL IVP PRN (11:25)
[2018-02-22] MEDS ORDERED: ACETAMINOPHEN 325 MG TAB PO PRN (11:25)
[2018-02-22] MEDS ORDERED: ONDANSETRON 4 MG/2 ML VIAL IVP PRN (11:30)
[2018-02-22] MEDS ORDERED: ALBUTEROL 0.083% 2.5 MG/3 ML NEBU INH PRN (11:35)
[2018-02-22 12:00] VITALS: BP 110/81
[2018-02-22 12:12] LABS: PROTHROMBIN TIME 46.1 secs (10.8-13.4)
[2018-02-22] MEDS: FUROSEMIDE 40 MG/4 ML VIAL IVP SCH ×2 (12:18→17:38)
--- NOTE | 2018-02-22 12:52 | NUR ---
LASIX WAS GIVEN PER ORDER. PRIMARY RN WAS INFORMED
[2018-02-22 15:26] LABS: CREATINE KINASE MB 2.9 ng/mL (0-3.6)
[2018-02-22] MEDS ORDERED: CARV3.12 PO (15:46)
[2018-02-22] MEDS ORDERED: FURO-570 PO (15:46)
[2018-02-22] MEDS ORDERED: METO25TA PO (15:46)
[2018-02-22] MEDS ORDERED: ATRMDI IH (15:46)
[2018-02-22] MEDS ORDERED: DIGO-143 PO (15:46)
[2018-02-22] MEDS ORDERED: ALBU0.0912 IH (15:46)
[2018-02-22] MEDS ORDERED: WARF2.5T77 PO (15:46)
[2018-02-22 16:00] VITALS: BP 110/76
--- NOTE | 2018-02-22 16:45 | NUR ---
EMPTIED CONDOM CATHETER BAG. 500 ML URINE OUTPUT NOTED. PT LYING IN BED. NO SIGNS OF DISTRESS. FAMILY AT BEDSIDE. WILL CONTINUE TO MONITOR.
[2018-02-22] MEDS ORDERED: SPIR25TA13 PO (17:50)
[2018-02-22] MEDS ORDERED: WARF2.5T1 PO (17:50)
[2018-02-22] MEDS ORDERED: LISI-424 PO (17:50)
[2018-02-22] MEDS ORDERED: SPIR50TA PO (17:53)
--- NOTE | 2018-02-22 19:20 | NUR ---
ENDORSED PT TO PM NURSE FOR CONTINUITY OF CARE. PT IN STABLE CONDITION.
--- NOTE | 2018-02-22 19:25 | NUR ---
RECEIVED PT. AWAKE AND ALERT. ABLE TO VERBALIZE NEEDS WELL. PT. TO BE DISCHARGED. WAITING FOR HIS TRANSPORT HOME. PT. TO GO TO BROTHER'S PLACE. IVF SITE DISCONTINUED AND ALL DISCHARGE PAPER WORKS SIGNED.
--- NOTE | 2018-02-22 20:08 | NUR ---
PT. PICKED UP BY GIRLFRIEND AWAKE AND ALERT. WHEELED TO THE FRONT BY AMBAR LONG. NO COMPLAINTS DONE. LEAD RIDER AWARE AND CHARGE NURSE AWARE OF DISCHARGE.
[2018-02-23] MEDS ORDERED: LISINOPRIL 5 MG TAB PO SCH (09:00)
[2018-02-23] MEDS ORDERED: DIGOXIN 0.125 MG TAB PO SCH (09:00)
[2018-02-23] MEDS ORDERED: SPIRONOLACTONE 25 MG TAB PO SCH (09:00)
== END 2018-02-22 19:55 | disposition home or self-care (01) | DRG 194 ==
LOC: MED 20:00 → MTU 22:56
PROVIDERS: ADMIT Hospitalist; ATTEND Hospitalist
DX: I13.0 Hypertensive heart and chronic kidney disease with heart failure and stage 1 through stage 4 chronic kidney disease, or unspecified chronic kidney disease (principal); I21.A1 Myocardial infarction type 2; J96.00 Acute respiratory failure, unspecified whether with hypoxia or hypercapnia; I50.23 Acute on chronic systolic (congestive) heart failure; N18.3 Chronic kidney disease, stage 3 (moderate); J44.1 Chronic obstructive pulmonary disease with (acute) exacerbation; I48.91 Unspecified atrial fibrillation; I42.0 Dilated cardiomyopathy; I69.354 Hemiplegia and hemiparesis following cerebral infarction affecting left non-dominant side; Z87.891 Personal history of nicotine dependence; Z95.810 Presence of automatic (implantable) cardiac defibrillator; F15.90 Other stimulant use, unspecified, uncomplicated; Z91.19 Patient's noncompliance with other medical treatment and regimen; F41.9 Anxiety disorder, unspecified
CPT/HCPCS: 36415; 71045; 80048; 80053; 82550; 82553; 83880; 84484; 85025; 85610; 85730; 87081; 96374; 99285; J1940; J7512; J7613; J7620

== ENCOUNTER 2018-04-12 13:33 | Emergency (ER) | payer OTHER ==
[~2018-04-12] VITALS: Ht 175.3 cm; Wt 79.4 kg
[~2018-04-12 13:33] MED LIST changes: +DIGO-143 PO; -DIGO0.122 PO; +FURO-570 PO; +LISI-424 PO; +SPIR25TA13 PO; +SPIR50TA PO; -WARF-99 PO; +WARF2.5T1 PO
[2018-04-12 13:39] VITALS: BP 94/67
[2018-04-12] MEDS ORDERED: ONDANSETRON 4 MG/2 ML VIAL IVP ONE (13:55)
[2018-04-12] MEDS ORDERED: MORPHINE SULFATE 2 MG/ML SYR IVP ONE (13:55)
[2018-04-12] MEDS ORDERED: ALBUTEROL SULFATE/IPRATROPIU 3 ML SOL IH ONE (13:55)
[2018-04-12 14:40] LABS: BASOPHILS % (AUTO) 0.2 % (0.0-2.0); EOSINOPHILS % (AUTO) 0.1 % (0.0-4.0); HEMATOCRIT 41.7 % (36-52); HEMOGLOBIN 13.3 g/dL (12.0-18.0); LYMPHOCYTES # (AUTO) 0.9 K/uL (2.0-11.5); LYMPHOCYTES % (AUTO) 4.8 % (20.5-51.1); MEAN CORPUSCULAR HEMOGLOBIN 28 pg (27-31); MEAN CORPUSCULAR HGB CONC 32 g/dL (33-37); MEAN CORPUSCULAR VOLUME 87.3 fL (80-94); MONOCYTES % (AUTO) 10.2 % (1.7-9.3); NEUTROPHILS # (AUTO) 16.5 K/uL (1.8-7.7); NEUTROPHILS % (AUTO) 84.7 % (42.2-75.2); PLATELET COUNT (AUTO) 143 K/uL (140-450); RED BLOOD CELL COUNT(AUTO) 4.78 MIL/uL (4.20-6.10); RED CELL DISTRIBUTION WIDTH 22.8 % (11.6-13.7); WHITE BLOOD COUNT (AUTO) 19.4 K/uL (4.8-10.8)
[2018-04-12 14:55] LABS: PROTHROMBIN TIME 18.6 secs (10.8-13.4)
[2018-04-12] MEDS ORDERED: HEPARIN PER PHARMACY MC PRN (15:50)
[2018-04-12] MEDS ORDERED: hePARIN / DEXT 5% PREMIX 250 ML IV ONE (15:50)
[2018-04-12 16:13] LABS: ALBUMIN 3.2 g/dL (3.4-5.0); ANION GAP 22.9 (8-16); CARBON DIOXIDE 17.4 mmol/L (21-32); CREATININE 2.2 mg/dL (0.7-1.3); POTASSIUM 5.3 mmol/L (3.5-5.1); TOTAL BILIRUBIN 4.5 mg/dL (0.0-1.0)
[2018-04-12] MEDS ORDERED: ENOXAPARIN 80 MG/0.8 ML SYR SUBQ ONE (16:45)
[2018-04-12 17:25] VITALS: BP 126/77
== END 2018-04-12 17:13 | disposition short-term general hospital (02) ==
LOC: MED 13:33
DX: E11.43 Type 2 diabetes mellitus with diabetic autonomic (poly)neuropathy (principal); K31.84 Gastroparesis; K21.9 Gastro-esophageal reflux disease without esophagitis; H81.312 Aural vertigo, left ear; I13.0 Hypertensive heart and chronic kidney disease with heart failure and stage 1 through stage 4 chronic kidney disease, or unspecified chronic kidney disease; I50.9 Heart failure, unspecified; N18.3 Chronic kidney disease, stage 3 (moderate); E11.22 Type 2 diabetes mellitus with diabetic chronic kidney disease; Z86.718 Personal history of other venous thrombosis and embolism; Z95.0 Presence of cardiac pacemaker; Z86.73 Personal history of transient ischemic attack (TIA), and cerebral infarction without residual deficits; Z79.899 Other long term (current) drug therapy
CPT/HCPCS: 36415; 71045; 80053; 82550; 84484; 85025; 85379; 85610; 85730; 86886; 86900; 86901; 93005; 93971; 94640; 96372; 96374; 96375; 99285; J1650; J2270; J2405; J7620; Q0092; J1644